=== PATIENT | male | born 1960 | race African-American/Black ===

== ENCOUNTER 2017-10-01 09:04 | Emergency (ER) | payer MEDICAID ==
--- NOTE | 2017-10-01 09:16 | ER Document Report ---
ED General - General Stated Complaint: BLOOD PRESSURE PROBLEM Time Seen by Provider: 10/01/17 09:13 Mode of Arrival: Ambulatory Information source: Patient Notes: 57-year-old male history of hypertension presents with complaints of high blood pressure. Patient notes he is supposed on lisinopril but does not have a PCP has been off his medications. Patient notes 3 days ago he was struck in the head at work, has had blurry vision on that left side where he was struck above his eyebrow. - HPI Onset: Other - 3 day duration Onset/Duration: Sudden Quality of pain: Achy Severity: Mild Pain Level: 1 Associated symptoms: Headache, Other Exacerbated by: Other - Injury Relieved by: Other - Patient given metoprolol by EMS notes symptoms have improved significantly, he was hypertensive upon arrival Similar symptoms previously: No Recently seen / treated by doctor: No - Related Data Allergies/Adverse Reactions: fluoxetine [From Prozac] Allergy (Verified 10/01/17 09:56) naproxen Allergy (Verified 10/01/17 09:56) Past Medical History - Social History Smoking Status: Never Smoker Cigarette use (# per day): No Chew tobacco use (# tins/day): No Smoking Education Provided: No Family History: Reviewed & Not Pertinent Review of Systems - Review of Systems Notes: REVIEW OF SYSTEMS: CONSTITUTIONAL : Denies fever, chills, or sweats. Denies recent illness. EENT: Left eye blurry vision CARDIOVASCULAR: Denies chest pain. Denies palpitations or racing or irregular heart beat. Denies ankle edema. RESPIRATORY: Denies cough, cold, or chest congestion. Denies shortness of breath, difficulty breathing, or wheezing. GASTROINTESTINAL: Denies abdominal pain or distention. Denies nausea, vomiting , or diarrhea. Denies blood in vomitus, stools, or per rectum. Denies black, tarry stools. Denies constipation. GENITOURINARY: Denies difficulty urinating, painful urination, burning, frequency, blood in urine, or discharge. MUSCULOSKELETAL: Denies back or neck pain or stiffness. Denies joint pain or swelling. SKIN: Denies rash, lesions or sores. HEMATOLOGIC : Denies easy bruising or bleeding. LYMPHATIC: Denies swollen, enlarged glands. NEUROLOGICAL: Admits to headache mild with left for head injury PSYCHIATRIC: Denies anxiety or stress. Denies depression, suicidal ideation, or homicidal ideation. ALL OTHER SYSTEMS REVIEWED AND NEGATIVE. Dictation was performed using [employer] voice recognition software PHYSICAL EXAMINATION: GENERAL: Well-appearing, well-nourished and in no acute distress. Hypertensive HEAD: Atraumatic, normocephalic. EYES: Pupils equal round and reactive to light, extraocular movements intact, sclera anicteric, conjunctiva are normal. ENT: Nares patent, oropharynx clear without exudates. Moist mucous membranes. NECK: Normal range of motion, supple without lymphadenopathy LUNGS: Breath sounds clear to auscultation bilaterally and equal. No wheezes rales or rhonchi. HEART: Regular rate and rhythm without murmurs ABDOMEN: Soft, nontender, nondistended abdomen. No guarding, no rebound. No masses appreciated. Musculoskeletal: Normal range of motion, no pitting or edema. No cyanosis. NEUROLOGICAL: Cranial nerves grossly intact. Normal speech, normal gait. Normal sensory, motor exams PSYCH: Normal mood, normal affect. SKIN: Warm, Dry, normal turgor, no rashes or lesions noted. Physical Exam - Vital signs Vitals: Resp Pulse Ox 21 H 95 10/01/17 09:36 10/01/17 09:36 Course - Re-evaluation Re-evalutation: 10/01/17 10:49 Patient's blood pressure is now 137/73, he notes this is the best his blood pressures ever been, the metoprolol was given to him appears to have worked quite well, I believe he has traumatic iritis from the injury causing the blurry vision, CT of the head was negative, he will be given a specific primary care doctor to follow-up with in's needs very. After performing a Medical Screening Examination, I estimate there is LOW risk for ACUTE GLAUCOMA, TEMPORAL ARTERITIS, MENINGITIS, INCRANIAL HEMORRHAGE, or ISCHEMIC STROKE thus I consider the discharge disposition reasonable. I have reevaluated this patient multiple times and no significant life threatening changes are noted. The patient and I have discussed the diagnosis and risks, and we agree with discharging home with close follow-up with the understanding that symptoms and presentations can change. We also discussed returning to the Emergency Department immediately if new or worsening symptoms occur. We have discussed the symptoms which are most concerning (e.g., changing or worsening symptoms, new numbness or weakness, vomiting, fever) that necessitate immediate return. - Vital Signs Vital signs: Temp Pulse Resp BP Pulse Ox 21 H 95 10/01/17 09:36 10/01/17 09:36 - Laboratory Result Diagrams: 10/01/17 09:10 10/01/17 09:10 Laboratory results interpreted by me: 10/01/17 10/01/17 09:10 09:10 RDW 14.8 H AST 71 H - Diagnostic Test Radiology reviewed: Image reviewed - ct head without ocntrast was negative for acute cva, Reports reviewed - EKG Interpretation by Me EKG shows normal: Sinus rhythm, [place], Intervals, QRS Complexes Discharge - Discharge Clinical Impression: Traumatic iritis Hypertension Qualifiers: Hypertension type: essential hypertension Qualified Code(s): I10 - Essential ( primary) hypertension Condition: Stable Disposition: HOME, SELF-CARE Instructions: High Blood Pressure, Requiring Treatment ([facility]) Additional Instructions: Please follow-up with the care plan provided to your return immediately if there are any other concerns Prescriptions: Labetalol HCl 100 mg PO BID #60 tablet
[2017-10-01 09:35] LABS: ABSOLUTE BASOPHILS # (AUTO) 0.1 10^3/uL (0.0-0.2); ABSOLUTE EOSINOPHILS # (AUTO) 0.1 10^3/uL (0.0-0.6); ABSOLUTE LYMPHOCYTES (AUTO) 2.3 10^3/uL (0.5-4.7); ABSOLUTE MONOCYTES (AUTO) 0.7 10^3/uL (0.1-1.4); ABSOLUTE NEUT (AUTO) 7.3 10^3/uL (1.7-8.2); BASOPHILS % (AUTO) 0.9 % (0-2); EOSINOPHILS % (AUTO) 0.6 % (0-6); HEMATOCRIT 48.2 % (37.9-51.0); HEMOGLOBIN 16.6 g/dL (13.5-17.0); LYMPHOCYTES % (AUTO) 21.7 % (13-45); MEAN CORPUSCULAR HEMOGLOBIN 31.4 pg (27.0-33.4); MEAN CORPUSCULAR HGB CONC 34.4 g/dL (32.0-36.0); MEAN CORPUSCULAR VOLUME 91 fl (80-97); MONOCYTES % (AUTO) 6.7 % (3-13); PLATELET COUNT 243 10^3/uL (150-450); RED BLOOD COUNT 5.29 10^6/uL (4.35-5.55); RED CELL DISTRIBUTION WIDTH 14.8 % (11.5-14.0); SEGMENTED NEUTROPHILS % (AUTO) 70.1 % (42-78); TOTAL CELLS COUNTED % (AUTO) 100 %; WHITE BLOOD COUNT 10.4 10^3/uL (4.0-10.5)
[2017-10-01 09:55] LABS: ALANINE AMINOTRANSFERASE 61 U/L (21-72); ALBUMIN 4.2 g/dL (3.5-5.0); ALKALINE PHOSPHATASE 75 U/L (38-126); ANION GAP 10 (5-19); ASPARTATE AMINO TRANSFERASE 71 U/L (17-59); BILIRUBIN,DIRECT 0.3 mg/dL (0.0-0.4); BILIRUBIN,TOTAL 0.3 mg/dL (0.2-1.3); BLOOD UREA NITROGEN 17 mg/dL (7-20); CALCIUM 9.6 mg/dL (8.4-10.2); CARBON DIOXIDE 27 mmol/L (22-30); CHLORIDE 107 mmol/L (98-107); GLUCOSE 104 mg/dL (75-110); POTASSIUM 4.5 mmol/L (3.6-5.0); TOTAL PROTEIN 7.7 g/dL (6.3-8.2)
--- NOTE | 2017-10-01 10:36 | RADIOLOGY REPORT (SQ) ---
EXAM DESCRIPTION: CT HEAD WITHOUT COMPLETED DATE/TIME: 10/01/2017 10:08 am REASON FOR STUDY: head trauma 3 days ago, left eye lburry vision COMPARISON: None. TECHNIQUE: Axial images acquired through the brain without intravenous contrast. Images reviewed wi th bone, brain and subdural windows. Additional sagittal and coronal reconstructions were generated. Images stored on PACS. All CT scanners at this facility use dose modulation, iterative reconstruction, and/or weight based d osing when appropriate to reduce radiation dose to as low as reasonably achievable (ALARA). [facility]: Dose Right [facility]: CareDose [facility]: Dose Right [facility]: Teradose 4D [facility]: Latio RADIATION DOSE: CT Rad equipment meets quality standard of care and radiation dose reduction techniq ues were employed. CTDIvol: 53.2 mGy. DLP: 1070 mGy-cm. mGy. LIMITATIONS: None. FINDINGS: VENTRICLES: Normal size and contour. CEREBRUM: No masses. No hemorrhage. No midline shift. No evidence for acute infarction. Normal gra y/white matter differentiation. No areas of low density in the white matter. CEREBELLUM: No masses. No hemorrhage. No alteration of density. No evidence for acute infarction. EXTRAAXIAL SPACES: No fluid collections. No masses. ORBITS AND GLOBE: No intra- or extraconal masses. Normal contour of globe without masses. CALVARIUM: No fracture. PARANASAL SINUSES: No fluid or mucosal thickening. SOFT TISSUES: No mass or hematoma. OTHER: No other significant finding. IMPRESSION: NORMAL BRAIN CT WITHOUT CONTRAST. EVIDENCE OF ACUTE STROKE: NO. COMMENT: Quality ID # [id number]: Final reports with documentation of one or more dose reduction techniques (e.g., Automated exposure control, adjustment of the mA and/or kV according to patient size, use of iterative reconstruction technique) TECHNICAL DOCUMENTATION: JOB ID: [id number] [employer]- All Rights Reserved Reading location - IP/workstation name: [email or web address]
[2017-10-01 11:19] VITALS: BP 134/73
--- NOTE | 2017-10-01 13:21 | EKG REPORT ---
SEVERITY:- NORMAL ECG - SINUS RHYTHM : Confirmed by: King Noble MD 01-Oct-2017 13:20:56
== END 2017-10-01 11:23 | disposition home or self-care (01) ==
LOC: ER 09:04
DX: I10 Essential (primary) hypertension (principal); H20.9 Unspecified iridocyclitis; H53.8 Other visual disturbances; S09.90XA Unspecified injury of head, initial encounter; W22.8XXA Striking against or struck by other objects, initial encounter; Y99.0 Civilian activity done for income or pay
CPT/HCPCS: 36415; 70450; 80053; 85025; 93005; 93010; 99284

== ENCOUNTER 2018-07-26 18:45 | Emergency (ER) | payer MEDICAID ==
--- NOTE | 2018-07-26 20:20 | ER Document Report ---
ED Medical Screen (RME) - General Chief Complaint: Headache Stated Complaint: HEADACHE Time Seen by Provider: 07/26/18 20:17 Notes: Patient is a 57-year-old male presents to the emergency department for intermittent headache and generalized memory loss for the last couple of months. Patient states for the last 24 hours he has noticed weakness in bilateral lower extremities and in his left upper extremity. Patient states he is supposed to be a medication for hypertension but does not take it Patient states his main complaint at this time is "the worst headache of my life." Past medical history: Hypertension, TIA Medications: Currently noncompliant with blood pressure medications Allergies: Prozac GENERAL: Alert, interacts well. No acute distress. HEAD: Normocephalic, atraumatic. EYES: Pupils equal, round, and reactive to light. Extraocular movements intact. NEUROLOGICAL: Alert and oriented x3. Normal speech. EXTREMITIES: Moves all 4 extremities spontaneously. No edema, normal radial and dorsalis pedis pulses bilaterally. No cyanosis. 5 out of 5 strength right upper extremity. 3 out of 5 strength left upper extremity and bilateral lower extremities. CVA scale 0 I have greeted and performed a rapid initial assessment of this patient. A comprehensive ED assessment and evaluation of the patient, analysis of test results and completion of the medical decision making process will be conducted by additional ED providers. TRAVEL OUTSIDE OF THE [place] IN LAST 30 DAYS: No - Related Data Allergies/Adverse Reactions: fluoxetine [From Prozac] Allergy (Verified 10/01/17 09:56) naproxen Allergy (Verified 10/01/17 09:56) Past Medical History - Past Medical History Cardiac Medical History: Reports: Hx Hypertension Renal/ Medical History: Denies: Hx Peritoneal Dialysis Past Surgical History: Reports: Hx Orthopedic Surgery Physical Exam - Vital signs Vitals: Temp Pulse Resp BP Pulse Ox 99.2 F 90 18 141/102 H 98 07/26/18 18:58 07/26/18 18:58 07/26/18 18:58 07/26/18 18:58 07/26/18 18:58 Course - Vital Signs Vital signs: Temp Pulse Resp BP Pulse Ox 99.2 F 90 18 141/102 H 98 07/26/18 18:58 07/26/18 18:58 07/26/18 18:58 07/26/18 18:58 07/26/18 18:58
--- NOTE | 2018-07-26 21:18 | RADIOLOGY REPORT (SQ) ---
EXAM DESCRIPTION: CT HEAD WITHOUT IV CONTRAST COMPLETED DATE/TME: 07/26/2018 20:17 CLINICAL HISTORY: 57 years, Male, headahce, weakness COMPARISON: None. EXAM DESCRIPTION: CLINICAL HISTORY: headahce, weakness COMPARISON: None Available TECHNIQUE: Contiguous axial CT images of the head were obtained. Coronal and sagittal reconstructions were created from the axial data. This exam was performed according to our departmental dose-optimization program, which includes automated exposure control, adjustment of the mA and/or kV according to patient size and/or use of iterative reconstruction technique. FINDINGS: Poorly defined foci of decreased attenuation do not exert significant mass effect on surrounding structures and are likely sequela of prior insult, most likely on the basis of small vessel disease. There is no evidence of acute mass, mass effect, midline shift or hemorrhage. The ventricles and extra-axial CSF spaces are unremarkable. The brain parenchyma appears otherwise normal for the patient's age. No acute abnormalities of the bones is seen. IMPRESSION: No acute intracranial abnormality.
[2018-07-26 22:33] LABS: APPEARANCE,URINE CLEAR; BILIRUBIN,URINE NEGATIVE (NEGATIVE); COLOR,URINE YELLOW; GLUCOSE, URINE NEGATIVE (NEGATIVE); KETONES,URINE NEGATIVE (NEGATIVE); LEUKOCYTE ESTERASE,URINE NEGATIVE (NEGATIVE); NITRITE,URINE NEGATIVE (NEGATIVE); PROTEIN,URINE NEGATIVE (NEGATIVE); URINE SPECIFIC GRAVITY 1.017; UROBILINOGEN,URINE NEGATIVE mg/dL (<2.0)
--- NOTE | 2018-07-26 22:49 | ER Document Report ---
ED Headache - General Chief Complaint: Headache Stated Complaint: HEADACHE Time Seen by Provider: 07/26/18 22:48 Mode of Arrival: Ambulatory Information source: Patient Notes: HISTORY OF PRESENT ILLNESS: Patient is a 57-year-old male with a past medical history of hypertension who presents with generalized malaise and weakness that began several days ago, also reports trouble with his "memory for the past 3 months." Location: Global Onset: Gradual Provocation: None Quality: Generalized weakness Radiation: None Severity: Mild to moderate Timing: Constant Associated symptoms: No fevers or chills, cough or congestion, chest pain or shortness of breath, swelling of the extremities, difficulty walking, vision changes, confusion/disorientation REVIEW OF SYSTEMS: CONSTITUTIONAL : Denies fever or chills, no sweats. Denies recent illness. EENT: Denies eye, ear, throat, or mouth pain or symptoms. Denies nasal or sinus congestion. CARDIOVASCULAR: Denies chest pain. RESPIRATORY: Denies cough, cold, or chest congestion. Denies shortness of breath, difficulty breathing, or wheezing. GASTROINTESTINAL: Denies abdominal pain. Denies nausea, vomiting, or diarrhea. Denies constipation. GENITOURINARY: Denies difficulty urinating, painful urination, burning, frequency, or blood in urine. MUSCULOSKELETAL: Denies neck or back pain or joint pain or swelling. SKIN: Denies rash or skin lesions. HEMATOLOGIC : Denies easy bruising or bleeding. LYMPHATIC: Denies swollen, enlarged glands. NEUROLOGICAL: Denies altered mental status or loss of consciousness. Denies headache. Denies weakness or paralysis or loss of use of either side. Denies problems with gait or speech. Denies sensory or motor loss. PSYCHIATRIC: Denies anxiety or stress or depression. All other systems reviewed and negative. PHYSICAL EXAMINATION: GENERAL: Well-appearing, well-nourished and in no acute distress. HEAD: Atraumatic, normocephalic. No scalp deformity, depression, or crepitance. EYES: Pupils are 3 mm and equal/round/reactive to light, extraocular movements intact, sclera anicteric, conjunctiva are normal. ENT: Nares patent bilaterally, oropharynx clear without exudates or palatal petechia. Moist mucous membranes. No tonsil hypertrophy. NECK: Normal range of motion, supple without lymphadenopathy. LUNGS: Breath sounds present, equal, and clear to auscultation bilaterally. No wheezes, rales, or rhonchi. HEART: Regular rate and rhythm without murmurs, rubs, or gallops. 2+ peripheral pulses. Normal capillary refill. ABDOMEN: Soft, nontender, nondistended. Normoactive bowel sounds. No guarding, no rebound. No masses appreciated. BACK: Normal contour, no midline tenderness. Rectal exam deferred. GENITAL: Deferred. EXTREMITIES: Normal range of motion, no pitting or edema. No cyanosis. NEUROLOGICAL: No focal neurological deficits. Moves all extremities spontaneously and on command. PSYCH: Normal mood, normal affect. No suicidal thoughts/ideations. No homocidal thoughts/ideations. No hallucinations. SKIN: Warm, dry, normal turgor, no rashes or lesions noted. ASSESSMENT AND PLAN: This patient is a 57-year-old male who presents with generalized malaise and w eakness with a normal physical exam. Differentials include UTI, drug abuse, dehydration, acute WA. 1. Will obtain labs, urine, urine drug screen, troponin, EKG, chest x-ray, and reassess. 2. Will likely discharge if workup is negative. TRAVEL OUTSIDE OF THE [place] IN LAST 30 DAYS: No - Related Data Allergies/Adverse Reactions: fluoxetine [From [employer]] Allergy (Verified 10/01/17 09:56) naproxen Allergy (Verified 10/01/17 09:56) Past Medical History - General Information source: Patient - Social History Smoking Status: Current Every Day Smoker Chew tobacco use (# tins/day): No Frequency of alcohol use: Social Drug Abuse: None Lives with: Alone Family History: Reviewed & Not Pertinent Patient has suicidal ideation: No Patient has homicidal ideation: No - Past Medical History Cardiac Medical History: Reports: Hx Hypertension Pulmonary Medical History: Reports: None EENT Medical History: Reports: None Neurological Medical History: Reports: None Endocrine Medical History: Reports: None Renal/ Medical History: Reports: None. Denies: Hx Peritoneal Dialysis Malignancy Medical History: Reports None GI Medical History: Reports: None Musculoskeletal Medical History: Reports None Skin Medical History: Reports None Psychiatric Medical History: Reports: None Traumatic Medical History: Reports: None Infectious Medical History: Reports: None Past Surgical History: Reports: Hx Orthopedic Surgery - Immunizations Immunizations up to date: Yes Hx Diphtheria, Pertussis, Tetanus Vaccination: Yes History of Influenza Vaccine for 02/2017 - 07/2017 Season: Unknown Physical Exam - Vital signs Vitals: Temp Pulse Resp BP Pulse Ox 99.2 F 90 18 141/102 H 98 07/26/18 18:58 07/26/18 18:58 07/26/18 18:58 07/26/18 18:58 07/26/18 18:58 Course - Re-evaluation Re-evalutation: 07/27/18 02:02 Labs, cardiac enzymes, urinalysis with drug screen, and head CT are all negative. Patient will be discharged home with return precautions and follow- up. Patient voices both understanding and agreeing with plan. - Vital Signs Vital signs: Temp Pulse Resp BP Pulse Ox 98.5 F 88 22 H 132/99 H 98 07/27/18 01:20 07/27/18 01:20 07/27/18 01:20 07/27/18 01:20 07/27/18 01:20 - Laboratory Result Diagrams: 07/26/18 23:02 07/26/18 23:02 Laboratory results interpreted by me: 07/26/18 07/26/18 23:02 23:02 RDW 14.6 H AST 74 H ALT 78 H - Diagnostic Test Radiology reviewed: Image reviewed, Reports reviewed - EKG Interpretation by Me EKG shows normal: Sinus rhythm Rate: Normal Rhythm: NSR [place]/QRS: No: Right axis deviation, Left axis deviation, RBBB, LBBB, IVCD, LAHB/LAFB, LPHB/LPFB, Bifasicular block Voltage: No: Increased voltage, Consistant with LVH, Decreased voltage, Throughout, Limb leads P Waves: No: JOSÉ MIGUEL, LAE, Absent, AV Dissociation, Other Heart block present: No: 1st Degree, Mobitz 1, Mobitz 2, CHB (3rd degree block) When compared to previous EKG there are: Previous EKG unavailable Discharge - Discharge Clinical Impression: Headache Qualifiers: Headache type: tension-type Headache chronicity pattern: acute headache Intractability: not intractable Qualified Code(s): G44.209 - Tension-type headache, unspecified, not intractable Condition: Good Disposition: HOME, SELF-CARE Instructions: Headache ([facility]) Additional Instructions: You have been evaluated in the Emergency Department for general weakness and having a headache. While here, you had normal blood work as well as a normal CAT scan of your head and it is now safe to be discharged home. Please follow- up with your primary physician as instructed in 1 week to be rechecked. Return to the Emergency Department if you experience vision changes, disorientation, confusion, difficulty walking, chest pain, or any other concerning symptoms. Prescriptions: Loratadine/Pseudoephedrine Sul [Claritin-D 24 Hour Tablet] 1 tab PO DAILY #30 tab.sr.24h Print Language: Iraqi
[2018-07-26 23:11] LABS: ABSOLUTE BASOPHILS # (AUTO) 0.1 10^3/uL (0.0-0.2); ABSOLUTE LYMPHOCYTES (AUTO) 2.2 10^3/uL (0.5-4.7); ABSOLUTE MONOCYTES (AUTO) 0.6 10^3/uL (0.1-1.4); ABSOLUTE NEUT (AUTO) 6.9 10^3/uL (1.7-8.2); BASOPHILS % (AUTO) 0.7 % (0-2); EOSINOPHILS % (AUTO) 0.4 % (0-6); HEMATOCRIT 46.8 % (37.9-51.0); HEMOGLOBIN 16.1 g/dL (13.5-17.0); LYMPHOCYTES % (AUTO) 22.6 % (13-45); MEAN CORPUSCULAR HEMOGLOBIN 31.3 pg (27.0-33.4); MEAN CORPUSCULAR HGB CONC 34.4 g/dL (32.0-36.0); MEAN CORPUSCULAR VOLUME 91 fl (80-97); MONOCYTES % (AUTO) 6.1 % (3-13); PLATELET COUNT 216 10^3/uL (150-450); RED BLOOD COUNT 5.15 10^6/uL (4.35-5.55); RED CELL DISTRIBUTION WIDTH 14.6 % (11.5-14.0); SEGMENTED NEUTROPHILS % (AUTO) 70.2 % (42-78); TOTAL CELLS COUNTED % (AUTO) 100 %; WHITE BLOOD COUNT 9.9 10^3/uL (4.0-10.5)
[2018-07-26 23:32] LABS: ALANINE AMINOTRANSFERASE 78 U/L (21-72); ALBUMIN 4.2 g/dL (3.5-5.0); ALKALINE PHOSPHATASE 70 U/L (38-126); ANION GAP 8 (5-19); ASPARTATE AMINO TRANSFERASE 74 U/L (17-59); BILIRUBIN,DIRECT 0.2 mg/dL (0.0-0.4); BILIRUBIN,TOTAL 0.7 mg/dL (0.2-1.3); BLOOD UREA NITROGEN 13 mg/dL (7-20); CALCIUM 9.7 mg/dL (8.4-10.2); CARBON DIOXIDE 28 mmol/L (22-30); CHLORIDE 104 mmol/L (98-107); GLUCOSE 93 mg/dL (75-110); POTASSIUM 4.4 mmol/L (3.6-5.0); SODIUM 139.5 mmol/L (137-145); TOTAL PROTEIN 7.5 g/dL (6.3-8.2)
[2018-07-27 01:11] LABS: URINE AMPHETAMINES SCREEN NEGATIVE; URINE BARBITURATES SCREEN NEGATIVE; URINE BENZODIAZEPINES SCREEN NEGATIVE; URINE COCAINE SCREEN NEGATIVE; URINE MARIJUANA (THC) SCREEN NEGATIVE; URINE METHADONE SCREEN NEGATIVE; URINE PHENCYCLIDINE SCREEN NEGATIVE
[2018-07-27 01:21] VITALS: BP 132/99
--- NOTE | 2018-07-27 10:25 | EKG REPORT ---
SEVERITY:- NORMAL ECG - SINUS RHYTHM : Confirmed by: Saumya Tony MD 27-Jul-2018 10:24:41
== END 2018-07-27 02:34 | disposition home or self-care (01) ==
LOC: ER 18:45
DX: G44.209 Tension-type headache, unspecified, not intractable (principal); I10 Essential (primary) hypertension; F17.200 Nicotine dependence, unspecified, uncomplicated
CPT/HCPCS: 36415; 70450; 80053; 80307; 81001; 84484; 85025; 93005; 93010; 99284

== ENCOUNTER 2019-10-25 20:15 | Inpatient (IN) | payer MEDICAID ==
[2019-10-25] MEDS ORDERED: CEFTRIAXONE INJ 1000 MG VIAL IV ONE (20:45)
[2019-10-25] MEDS ORDERED: HYDROCODONE/ACETAMINOPHEN 5-325 MG TABLET PO ONE (20:45)
[2019-10-25] MEDS ORDERED: RINGERS SOLUTION,LACTATED 1,000 ML IV ONE (20:45)
--- NOTE | 2019-10-25 20:48 | ER Document Report ---
ED Medical Screen (RME) - General Chief Complaint: Wound Infection Stated Complaint: HAND PAIN Time Seen by Provider: 10/25/19 20:39 Mode of Arrival: Medic Information source: Patient Notes: HPI; 39-year-old male presents emergency room complaining of increased pain, swelling, and drainage around surgical pins that he noticed yesterday. States he was able to feel the pins and screws from the surgery he had 1 month ago after a fall off a roof states he saw Dr. Lino last week who told him he would see him next week to have the pins removed. Comes in tonight for increased swelling, redness, and drainage. PE: Alert and oriented x3. Moderate distress noted. Left hand with moderate amount of swelling, erythema, drainage noted medial aspect of the right wrist. I have greeted and performed a rapid initial assessment of this patient. A comprehensive ED assessment and evaluation of the patient, analysis of test results and completion of the medical decision making process will be conducted by additional ED providers. I have specifically instructed the patient or family members with the patient to immediately return to any nursing staff should anything change in the patient's condition or with their chief complaint. TRAVEL OUTSIDE OF THE [place] IN LAST 30 DAYS: No - Related Data Allergies/Adverse Reactions: fluoxetine [From Prozac] Allergy (Verified 08/26/19 14:08) naproxen Allergy (Verified 08/26/19 14:08) Home Medications: gabapentin, lisinopril, oxycodone Past Medical History - Past Medical History Cardiac Medical History: Reports: Hx Hypertension Renal/ Medical History: Denies: Hx Peritoneal Dialysis Psychiatric Medical History: Reports: Hx Schizophrenia Past Surgical History: Reports: Hx Orthopedic Surgery - Immunizations Immunizations up to date: Yes Hx Diphtheria, Pertussis, Tetanus Vaccination: Yes Physical Exam - Vital signs Vitals: Temp Pulse Resp BP Pulse Ox 100.3 F 91 20 158/95 H 95 10/25/19 20:22 10/25/19 20:22 10/25/19 20:22 10/25/19 20:22 10/25/19 20:22 Course - Vital Signs Vital signs: Temp Pulse Resp BP Pulse Ox 100.3 F 91 20 158/95 H 95 10/25/19 20:31 10/25/19 20:22 10/25/19 20:22 10/25/19 20:22 10/25/19 20:22
--- NOTE | 2019-10-25 21:57 | RADIOLOGY REPORT (SQ) ---
CLINICAL INDICATION: pain/swelling. . TECHNIQUE: 3 view(s) were obtained of the left wrist. COMPARISON: August 26, 2019. FINDINGS: Old posttraumatic and postsurgical changes identified to the third and fourth metacarpal. Pins are identified stabilizing the wrist post surgical reduction.. Alignment appears anatomic. An acute fracture is not seen. Soft tissue swelling. IMPRESSION: Anatomic alignment. No acute fracture. Postsurgical change is seen.
[2019-10-25] MEDS ORDERED: CEFTRIAXONE 1 GM/D5W RTU 1 GM/50 ML RTUPB IV ONE (22:09)
--- NOTE | 2019-10-25 22:22 | ER Document Report ---
ED General - General Chief Complaint: Wound Infection Stated Complaint: HAND PAIN Time Seen by Provider: 10/25/19 20:39 Primary Care Provider: MARCO ANTONIO RODRIGUEZ FNP-C [Primary Care Provider] - Follow up as needed Mode of Arrival: Medic Information source: Patient Notes: triage note 10/25/19 20:36 - ED Nursing Note by AMINKELSYMarci Lott Num: [id number] : 1960 Patient Age: 59 pt had surgery w/screws in left wrist. 1 wk ago pt was able to remove partial cast. pt now w/drainage from surg site, running fever. pt w/swelling going up arm. pt was given tylenol by ems. surg was done here at [place]. PA note HPI; 39-year-old male presents emergency room complaining of increased pain, swelling, and drainage around surgical pins that he noticed yesterday. States he was able to feel the pins and screws from the surgery he had 1 month ago after a fall off a roof states he saw Dr. Lino last week who told him he would see him next week to have the pins removed. Comes in tonight for increased swelling, redness, and drainage. PE: Alert and oriented x3. Moderate distress noted. Left hand with moderate amount of swelling, erythema, drainage noted medial aspect of the right wrist. my notes 59-year-old male with chief complaint of left wrist pain after having drainage from surgical site with fever and swelling around the arm. my notes 59-year-old black male arrives with chief complaint of falling off the roof around [address] Lino orthopedics do ORIF on the man's wrist. He was seen in the office by same 1 week prior and the patient was complaining of feeling like a pin was working his way out. He is scheduled to get his pins out soon but he began to have over the past 5 days increasing pain and swelling to where he has purulent discharge from his left snuffbox area and redness and streaking to his mid forearm. The diameter of his hand on the left is twice that of his right hand as well as his left sided wrist being twice the diameter of the right wrist he reports she is been running fevers and indeed he is febrile upon arrival.100+ temperature. Patient was given vancomycin and Ro cephin upon arrival. Blood was cultured and wound was cultured by staff.. TRAVEL OUTSIDE OF THE [place] IN LAST 30 DAYS: No - HPI Onset: Last week Onset/Duration: Sudden Quality of pain: Achy, Fullness, Pressure Severity: Severe Pain Level: 4 Associated symptoms: Fever Exacerbated by: Movement Relieved by: Denies Similar symptoms previously: No Recently seen / treated by doctor: No - Related Data Allergies/Adverse Reactions: fluoxetine [From Prozac] Allergy (Verified 08/26/19 14:08) naproxen Allergy (Verified 08/26/19 14:08) Home Medications: gabapentin, lisinopril, oxycodone Past Medical History - General Information source: Patient - Social History Smoking Status: Current Every Day Smoker Cigarette use (# per day): Yes Chew tobacco use (# tins/day): No Smoking Education Provided: Yes Frequency of alcohol use: None Drug Abuse: None Lives with: Family Family History: Reviewed & Not Pertinent Patient has suicidal ideation: No Patient has homicidal ideation: No - Past Medical History Cardiac Medical History: Reports: Hx Hypertension Renal/ Medical History: Denies: Hx Peritoneal Dialysis Psychiatric Medical History: Reports: Hx Schizophrenia Past Surgical History: Reports: Hx Orthopedic Surgery - Immunizations Immunizations up to date: Yes Hx Diphtheria, Pertussis, Tetanus Vaccination: Yes Review of Systems - Review of Systems Constitutional: See HPI, Fever, Weakness, Other - Recent surgery EENT: No symptoms reported Cardiovascular: No symptoms reported Respiratory: No symptoms reported Gastrointestinal: No symptoms reported Genitourinary: No symptoms reported Male Genitourinary: No symptoms reported Musculoskeletal: See HPI, Joint pain, Joint swelling, Muscle pain Skin: No symptoms reported Hematologic/Lymphatic: No symptoms reported Neurological/Psychological: No symptoms reported Physical Exam - Vital signs Vitals: Temp Pulse Resp BP Pulse Ox 100.3 F 91 20 158/95 H 95 10/25/19 20:22 10/25/19 20:22 10/25/19 20:22 10/25/19 20:22 10/25/19 20:22 Interpretation: Febrile - General General appearance: Alert - HEENT Head: Normocephalic, Atraumatic Eyes: Normal Pupils: PERRL Pharynx: Normal Neck: Normal - Respiratory Respiratory status: No respiratory distress Chest status: Nontender Breath sounds: Normal Chest palpation: Normal - Cardiovascular Rhythm: Regular Heart sounds: Normal auscultation Murmur: No - Abdominal Inspection: Normal Distension: No distension Bowel sounds: Normal Tenderness: Nontender Organomegaly: No organomegaly - Rectal Hemorrhoids: Other - deferred - Genitourinary Tenderness: Other - deferred - Back Back: Normal, Nontender - Extremities General upper extremity: Tender, Other - purulent dc from left snuff box area General lower extremity: Normal inspection - Neurological Neuro grossly intact: Yes Cognition: Normal Orientation: AAOx4 Tasha Coma Scale Eye Opening: Spontaneous [place]asha Coma Scale Verbal: Oriented [place] Coma Scale Motor: Obeys Commands [place] Coma Scale Total: 15 Speech: Normal Motor strength normal: LUE, RUE, LLE, RLE Sensory: Normal - Psychological Associated symptoms: Normal affect - Skin Skin Temperature: Warm Skin Moisture: Dry Course - Vital Signs Vital signs: Temp Pulse Resp BP Pulse Ox 100.3 F 91 20 158/95 H 95 10/25/19 20:31 10/25/19 20:22 10/25/19 20:22 10/25/19 20:22 10/25/19 20:22 - Laboratory Result Diagrams: 10/25/19 22:13 10/25/19 22:13 Laboratory results interpreted by me: 10/25/19 10/25/19 22:13 22:13 WBC 18.4 H Absolute Neuts (auto) 13.7 H Absolute Monos (auto) 1.7 H Sodium 135.2 L Potassium 3.2 L Chloride 97 L Glucose 112 H - Diagnostic Test Radiology reviewed: Reports reviewed Critical Care Note - Critical Care Note Total time excluding time spent on procedures (mins): 90 Comments: This case was initially discussed with Dr. Gonzalez orthopedics but he advised this is case and to call him. Therefore this call was made and Desmond advised he will admit the patient . Discharge - Discharge Clinical Impression: Cellulitis and abscess of hand Condition: Fair Disposition: ADMITTED INPATIENT Unit Admitted: Medical Floor Referrals: MARCO ANTONIO RODRIGUEZ FNP-C [Primary Care Provider] - Follow up as needed
[2019-10-25] MEDS ORDERED: VANCOMYCIN HCL INJ 1000 MG VIAL IV ONE (22:26)
[2019-10-25 22:37] LABS: ABSOLUTE BASOPHILS # (AUTO) 0.2 10^3/uL (0.0-0.2); ABSOLUTE LYMPHOCYTES (AUTO) 2.8 10^3/uL (0.5-4.7); ABSOLUTE MONOCYTES (AUTO) 1.7 10^3/uL (0.1-1.4); ABSOLUTE NEUT (AUTO) 13.7 10^3/uL (1.7-8.2); EOSINOPHILS % (AUTO) 0.2 % (0-6); HEMATOCRIT 46.9 % (37.9-51.0); HEMOGLOBIN 16.4 g/dL (13.5-17.0); LYMPHOCYTES % (AUTO) 15.2 % (13-45); MEAN CORPUSCULAR HEMOGLOBIN 31.7 pg (27.0-33.4); MEAN CORPUSCULAR HGB CONC 34.9 g/dL (32.0-36.0); MEAN CORPUSCULAR VOLUME 91 fl (80-97); MONOCYTES % (AUTO) 9.5 % (3-13); PLATELET COUNT 225 10^3/uL (150-450); RED BLOOD COUNT 5.18 10^6/uL (4.35-5.55); RED CELL DISTRIBUTION WIDTH 13.8 % (11.5-14.0); SEGMENTED NEUTROPHILS % (AUTO) 74.1 % (42-78); TOTAL CELLS COUNTED % (AUTO) 100 %; WHITE BLOOD COUNT 18.4 10^3/uL (4.0-10.5)
[2019-10-25 22:52] LABS: ALBUMIN 4.1 g/dL (3.5-5.0); ALKALINE PHOSPHATASE 68 U/L (38-126); ANION GAP 9 (5-19); ASPARTATE AMINO TRANSFERASE 47 U/L (17-59); BILIRUBIN,DIRECT 0.1 mg/dL (0.0-0.4); BLOOD UREA NITROGEN 10 mg/dL (7-20); CALCIUM 9.5 mg/dL (8.4-10.2); CARBON DIOXIDE 29 mmol/L (22-30); CHLORIDE 97 mmol/L (98-107); GLUCOSE 112 mg/dL (75-110); POTASSIUM 3.2 mmol/L (3.6-5.0); TOTAL PROTEIN 7.4 g/dL (6.3-8.2)
[2019-10-25] MEDS ORDERED: ONDANSETRON HCL INJ/PF 4 MG/2 ML SDV IV PRN (23:29)
[2019-10-25] MEDS ORDERED: MORPHINE SULFATE 10 MG/ML INJ IV PRN (23:29)
[2019-10-25] MEDS ORDERED: VANCOMYCIN HCL INJ 1000 MG VIAL IV SCH (23:30)
[2019-10-25 23:55] LABS: ANION GAP 6 (5-19); BLOOD UREA NITROGEN 10 mg/dL (7-20); CALCIUM 8.9 mg/dL (8.4-10.2); CARBON DIOXIDE 28 mmol/L (22-30); CHLORIDE 99 mmol/L (98-107); GLUCOSE 117 mg/dL (75-110); POTASSIUM 3.1 mmol/L (3.6-5.0)
[2019-10-26] MEDS: OXYCODONE-ACETAMINOPHEN 5-325 MG TABLET PO PRN ×4 (01:57→21:44)
[2019-10-26 06:35] LABS: HEMATOCRIT 45.5 % (37.9-51.0); MEAN CORPUSCULAR HEMOGLOBIN 31.9 pg (27.0-33.4); MEAN CORPUSCULAR HGB CONC 35.3 g/dL (32.0-36.0); MEAN CORPUSCULAR VOLUME 90 fl (80-97); PLATELET COUNT 199 10^3/uL (150-450); RED BLOOD COUNT 5.03 10^6/uL (4.35-5.55); RED CELL DISTRIBUTION WIDTH 13.6 % (11.5-14.0); WHITE BLOOD COUNT 14.8 10^3/uL (4.0-10.5)
--- NOTE | 2019-10-26 07:07 | PDOC H&P ---
History of Present Illness Admission Date/PCP: 10/25/19 23:46 JUWAN HANCOCK-C Patient complains of: Left hand pain and swelling History of Present Illness: PACHECO KHAN is a 59 year old male who presented to emergency room with increasing redness swelling and pain along with drainage from 1 of the pin sites. Patient states since his most recent office visit he was having no issues but did remove the brace and begin more aggressive motion of his wrist which caused swelling and noticed the pins began to move. Patient then presented to the emergency room due to increasing redness and swelling that occurred over the past 24 hours. In the emergency room patient was found to have elevated white count and drainage. Cultures were obtained. Patient was started on antibiotics. Patient notes numbness in his fingertips are relatively unchanged but has considerable swelling and pain along the dorsum of the wrist. Past Medical History Cardiac Medical History: Reports: Hypertension Psychiatric Medical History: Reports: Depression Past Surgical History Past Surgical History: Reports: Orthopedic Surgery Social History Lives with: Family Smoking Status: Current Every Day Smoker Cigarettes Packs Per Day: 1 Electronic Cigarette use?: No Number of Years Smokin Frequency of Alcohol Use: Heavy Drugs: None Hx Prescription Drug Abuse: No Family History Family History: Reviewed & Not Pertinent Parental Family History Reviewed: No Children Family History Reviewed: No Sibling(s) Family History Reviewed.: No Medication/Allergy Home Medications: Lisinopril [Prinivil 10 mg Tablet] 10 mg PO DAILY 08/26/19 Oxycodone HCl/Acetaminophen [Percocet 5-325 mg Tablet] 1 tab PO Q6 PRN #25 tab 08/26/19 Allergies/Adverse Reactions: fluoxetine [From Prozac] Allergy (Verified 08/26/19 14:08) naproxen Allergy (Verified 08/26/19 14:08) Review of Systems Constitutional: PRESENT: fever(s). ABSENT: chills, headache(s), weight gain, weight loss Eyes: ABSENT: visual disturbances Ears: ABSENT: hearing changes Cardiovascular: ABSENT: chest pain, dyspnea on exertion, edema, orthropnea, palpitations Respiratory: ABSENT: cough, hemoptysis Gastrointestinal: ABSENT: abdominal pain, constipation, diarrhea, hematemesis, hematochezia, nausea, vomiting Genitourinary: ABSENT: dysuria, hematuria Musculoskeletal: PRESENT: as per HPI Integumentary: ABSENT: rash, wounds Neurological: ABSENT: abnormal gait, abnormal speech, confusion, dizziness, focal weakness, syncope Psychiatric: ABSENT: anxiety, depression, homidical ideation, suicidal ideation Endocrine: ABSENT: cold intolerance, heat intolerance, menstrual abnormalities, polydipsia, polyuria Hematologic/Lymphatic: ABSENT: easy bleeding, easy bruising, lymphadenopathy Physical Exam Vital Signs: Temp Pulse Resp BP Pulse Ox 98.7 F 95 16 124/75 100 10/26/19 02:25 10/26/19 02:25 10/26/19 02:25 10/26/19 02:25 10/26/19 02:25 Intake & Output 10/25/19 10/26/19 10/27/19 06:59 06:59 06:59 Intake Total 1000 Balance 1000 Weight 91.6 kg General appearance: PRESENT: no acute distress, well-developed, well-nourished Head exam: PRESENT: atraumatic, normocephalic Eye exam: PRESENT: conjunctiva pink, EOMI, PERRLA. ABSENT: scleral icterus Ear exam: PRESENT: normal external ear exam Mouth exam: PRESENT: moist, tongue midline Neck exam: PRESENT: full ROM. ABSENT: carotid bruit, JVD, lymphadenopathy, thyromegaly Cardiovascular exam: PRESENT: RRR. ABSENT: diastolic murmur, rubs, systolic murmur Pulses: PRESENT: normal dorsalis pedis pul, +2 pedal pulses bilateral Vascular exam: PRESENT: normal capillary refill GI/Abdominal exam: PRESENT: normal bowel sounds, soft. ABSENT: distended, gu arding, mass, organolmegaly, rebound, tenderness Rectal exam: PRESENT: deferred Musculoskeletal exam: PRESENT: other - Left wrist: Notable swelling along the dorsum of the wrist with tenderness to palpation. Small pin site with purulent drainage along the radial sided pin site. Tenderness to palpation. Intact flexion of the IP/MP joints however pain with motion. Hypoesthesia on the median nerve distribution which is unchanged. Neurological exam: PRESENT: alert, awake, oriented to person, oriented to place, oriented to time, oriented to situation, CN II-XII grossly intact. ABSENT: motor sensory deficit Psychiatric exam: PRESENT: appropriate affect, normal mood. ABSENT: homicidal ideation, suicidal ideation Skin exam: PRESENT: dry, intact, warm. ABSENT: cyanosis, rash Results Laboratory Results: 10/26/19 05:44 06/02/20 23:18 10/25/19 10/25/19 10/25/19 22:13 22:13 22:13 WBC 18.4 H RBC 5.18 Hgb 16.4 Hct 46.9 MCV 91 MCH 31.7 MCHC 34.9 RDW 13.8 Plt Count 225 Seg Neutrophils % 74.1 Sodium 135.2 L Potassium 3.2 L Chloride 97 L Carbon Dioxide 29 Anion Gap 9 BUN 10 Creatinine 0.85 Est GFR ( Amer) > 60 Glucose 112 H Lactic Acid 1.0 Calcium 9.5 Total Bilirubin 1.0 AST 47 Alkaline Phosphatase 68 Total Protein 7.4 Albumin 4.1 10/25/19 10/26/19 23:18 05:44 WBC 14.8 H RBC 5.03 Hgb 16.0 Hct 45.5 MCV 90 MCH 31.9 MCHC 35.3 RDW 13.6 Plt Count 199 Seg Neutrophils % Sodium 133.1 L Potassium 3.1 L Chloride 99 Carbon Dioxide 28 Anion Gap 6 BUN 10 Creatinine 0.79 Est GFR ( Amer) > 60 Glucose 117 H Lactic Acid Calcium 8.9 Total Bilirubin AST Alkaline Phosphatase Total Protein Albumin Impressions: Wrist X-Ray 10/25/19 20:44 IMPRESSION: Anatomic alignment. No acute fracture. Postsurgical change is seen. Assessment & Plan - Diagnosis (1) Cellulitis and abscess of hand Is this a current diagnosis for this admission?: Yes Plan: Patient is status post ORIF with carpal tunnel release perilunate dislocation. Patient had been progressing appropriately although always had pain issues. However over the past 24 hours she has noticed increasing drainage and swelling of his hand likely secondary to increased motion of his wrist. Lab values in the emergency room demonstrated elevated white count at this point I feel patient's pin sites are causing at the very least a superficial infection marie aj deep infection may also be contributing as well. At this point I have recommended proceeding with operative intervention within the next 24 hours which includes irrigation and debridement of the left hand with pin removal. Patient will continue on current IV antibiotic regimen. Will consult the hospitalist due to patient's hypokalemia as well. Risk and benefits of surgical procedure have been explained patient verbalized understanding consented for surgical procedure.
[2019-10-26] MEDS: CEFTRIAXONE 2 GM/D5W RTU 2 GM/50 ML RTUPB IV SCH (09:24)
[2019-10-26] MEDS ORDERED: VANCOMYCIN HCL INJ 1000 MG VIAL IV SCH (10:15)
--- NOTE | 2019-10-26 10:28 | PDOC CONSULTATION ---
Consultation Consult Date: 10/26/19 Attending physician:: JAMIE LOGAN Provider Consulted: VEENA WALLER Consult reason:: hypokalemia History of Present Illness Admission Date/PCP: 10/25/19 23:46 ANTHONY HANCOCK Patient complains of: Left hand pain and drainage History of Present Illness: PACHECO KHAN is a 59 year old male with history of hypertension, who presents to the hospital for reevaluation of purulence from left hand at s urgical site of his recent orthopedic surgery. Patient also noted increased swelling of his left hand. Admitted under orthopedic service with plan for OR this evening for evaluation and therapy. Patient noted to be hypokalemic. Patient denies any nausea, vomiting, diarrhea, decreased oral intake, loss of appetite/anorexia. He also denies being on any diuretics/water pills. He otherwise feels well and denies any shortness of breath fever or abdominal pain. Past Medical History Cardiac Medical History: Reports: Hypertension Denies: Atrial Fibrillation, Congestive Heart Failure, Coronary Artery Disease, Myocardial Infarction Pulmonary Medical History: Denies: Asthma, Chronic Obstructive Pulmonary Disease (COPD) Endocrine Medical History: Denies: Diabetes Mellitus Type 1, Diabetes Mellitus Type 2 Past Surgical History Past Surgical History: Reports: Orthopedic Surgery Social History Information Source: Patient Lives with: Family Smoking Status: Current Every Day Smoker Cigarettes Packs Per Day: 1 Electronic Cigarette use?: No Number of Years Smokin Frequency of Alcohol Use: Social - states drinks about 6 beers a week. Denies ever withdrawing from alcohol. Drugs: None Hx Prescription Drug Abuse: No Family History Family History: DM, Hypertension Parental Family History Reviewed: Yes Children Family History Reviewed: NA Sibling(s) Family History Reviewed.: Yes Medication/Allergy Home Medications: Lisinopril [Prinivil 10 mg Tablet] 10 mg PO DAILY 08/26/19 Allergies/Adverse Reactions: fluoxetine [From Prozac] Allergy (Verified 08/26/19 14:08) naproxen Allergy (Verified 08/26/19 14:08) Review of Systems Constitutional: ABSENT: anorexia, fatigue Eyes: ABSENT: visual disturbances Cardiovascular: ABSENT: chest pain, dyspnea on exertion, orthropnea Respiratory: ABSENT: cough, dyspnea Gastrointestinal: ABSENT: abdominal pain, diarrhea, nausea, vomiting Genitourinary: ABSENT: dysuria Integumentary: ABSENT: diaphoresis Neurological: ABSENT: dizziness Psychiatric: ABSENT: anxiety Endocrine: ABSENT: cold intolerance Hematologic/Lymphatic: ABSENT: easy bleeding Allergic/Immunologic: PRESENT: seasonal rhinorrhea Physical Exam Vital Signs: Temp Pulse Resp BP Pulse Ox 98.8 F 89 18 146/99 H 98 10/26/19 07:07 10/26/19 07:07 10/26/19 07:07 10/26/19 07:07 10/26/19 07:07 Intake & Output 10/25/19 10/26/19 10/27/19 06:59 06:59 06:59 Intake Total 1000 Balance 1000 Weight 91.6 kg General appearance: PRESENT: no acute distress, cooperative Head exam: PRESENT: normocephalic Eye exam: PRESENT: EOMI Neck exam: ABSENT: JVD Respiratory exam: PRESENT: clear to auscultation maribell, unlabored. ABSENT: wheezes Cardiovascular exam: PRESENT: RRR, +S1, +S2. ABSENT: diastolic murmur, systolic murmur, tachycardia GI/Abdominal exam: PRESENT: soft. ABSENT: rebound, rigid, tenderness Extremities exam: PRESENT: other - Swelling of the left hand Musculoskeletal exam: PRESENT: ambulatory Neurological exam: PRESENT: alert, awake, oriented to person, oriented to place, oriented to time Psychiatric exam: ABSENT: agitated, anxious Focused psych exam: ABSENT: pressured speech Skin exam: ABSENT: jaundice Results Laboratory Results: 10/26/19 05:44 10/25/19 23:18 10/25/19 10/25/19 10/25/19 22:13 22:13 22:13 WBC 18.4 H RBC 5.18 Hgb 16.4 Hct 46.9 MCV 91 MCH 31.7 MCHC 34.9 RDW 13.8 Plt Count 225 Seg Neutrophils % 74.1 Sodium 135.2 L Potassium 3.2 L Chloride 97 L Carbon Dioxide 29 Anion Gap 9 BUN 10 Creatinine 0.85 Est GFR ( Amer) > 60 Glucose 112 H Lactic Acid 1.0 Calcium 9.5 Total Bilirubin 1.0 AST 47 Alkaline Phosphatase 68 Total Protein 7.4 Albumin 4.1 10/25/19 10/26/19 23:18 05:44 WBC 14.8 H RBC 5.03 Hgb 16.0 Hct 45.5 MCV 90 MCH 31.9 MCHC 35.3 RDW 13.6 Plt Count 199 Seg Neutrophils % Sodium 133.1 L Potassium 3.1 L Chloride 99 Carbon Dioxide 28 Anion Gap 6 BUN 10 Creatinine 0.79 Est GFR ( Amer) > 60 Glucose 117 H Lactic Acid Calcium 8.9 Total Bilirubin AST Alkaline Phosphatase Total Protein Albumin Impressions: Wrist X-Ray 10/25/19 20:44 IMPRESSION: Anatomic alignment. No acute fracture. Postsurgical change is seen. Assessment and Plan - Diagnosis (1) Cellulitis and abscess of hand Is this a current diagnosis for this admission?: Yes Plan: status post ORIF with carpal tunnel release perilunate dislocation. Plan to be taken to surgery by orthopedics tonyanni. Leukocytosis on CBC. I have ordered and reviewed EKG which is unremarkable. Currently on ceftriaxone. I will add vancomycin for MRSA coverage given abscess. deep tissue culture and blood cultures. (2) Hypokalemia Is this a current diagnosis for this admission?: Yes Plan: Denies nausea, vomiting, diarrhea, diuretic use. Etiology is unclear. We will go ahead and replete with p.o. and IV potassium. Will recheck BMP later. Check magnesium level as well. Orders placed. (3) Hypertension Qualifiers: Hypertension type: essential hypertension Qualified Code(s): I10 - Essential (primary) hypertension Is this a current diagnosis for this admission?: Yes Plan: Resume lisinopril. - Time Time Spent with patient: 25-34 minutes
[2019-10-26] MEDS ORDERED: POTASSIUM CHLORIDE 10 MEQ TABLET.ER PO ONE (10:30)
[2019-10-26] MEDS: POTASSI CL 20 MEQ/50 ML RIDER 20 MEQ/50 ML RTUPB IV SCH ×2 (11:45→13:57)
[2019-10-26] MEDS: LISINOPRIL 10 MG TABLET PO SCH (11:45)
[2019-10-26] MEDS: VANCOMYCIN HCL 1,250 MG in DEXTROSE 5%-WATER 250 ML IV SCH (13:57)
[2019-10-26 16:46] LABS: ANION GAP 5 (5-19); BLOOD UREA NITROGEN 10 mg/dL (7-20); CALCIUM 8.8 mg/dL (8.4-10.2); CARBON DIOXIDE 28 mmol/L (22-30); CHLORIDE 101 mmol/L (98-107); GLUCOSE 111 mg/dL (75-110)
[2019-10-26] MEDS ORDERED: ONDANSETRON HCL INJ/PF 4 MG/2 ML SDV ONE (16:54)
[2019-10-26] MEDS ORDERED: FENTANYL CITRATE INJ/PF 100 MCG/2 ML AMPUL ONE (16:54)
[2019-10-26] MEDS ORDERED: LIDOCAINE 2% INJ-PF (20 MG/ML) 10 ML AMPUL ONE (16:54)
[2019-10-26] MEDS ORDERED: MIDAZOLAM 2 MG/2 ML INJ ONE (16:54)
[2019-10-26] MEDS ORDERED: PROPOFOL INJ 200 MG/20 ML VIAL IV ONE (16:55)
[2019-10-26 17:02] LABS: POTASSIUM 4.5 mmol/L (3.6-5.0)
[2019-10-26] MEDS ORDERED: BUPIVACAINE HCL 0.5 % INJ/PF 30 ML SDV ONE (17:15)
[2019-10-26] MEDS ORDERED: FENTANYL CITRATE INJ/PF 100 MCG/2 ML AMPUL IV PRN ×3 (18:01)
[2019-10-26] MEDS ORDERED: ONDANSETRON HCL INJ/PF 4 MG/2 ML SDV IV PRN (18:01)
[2019-10-26] MEDS ORDERED: MEPERIDINE HCL/PF INJ 25 MG/1 ML DISP.SYRIN IV PRN (18:01)
[2019-10-26] MEDS ORDERED: PROMETHAZINE HCL INJ 25 MG/1 ML VIAL IV PRN ×2 (18:01)
[2019-10-26] MEDS ORDERED: DIPHENHYDRAMINE HCL 50 MG/ML VIAL IV PRN (18:01)
--- NOTE | 2019-10-26 18:40 | Operative Report ---
Operative Report DATE OF SURGERY: 10/26/19 PREOPERATIVE DIAGNOSIS: Left hand abscess/cellulitis status post ORIF perilunate dislocation POSTOPERATIVE DIAGNOSIS: Same OPERATION: Removal of deep hardware left wrist with irrigation debridement left wrist SURGEON: JAMIE LOGAN ANESTHESIA: GA TISSUE REMOVED OR ALTERED: Aerobic, anaerobic, AFB, fungal culture COMPLICATIONS: None ESTIMATED BLOOD LOSS: Minimal INTRAOPERATIVE FINDINGS: Purulent drainage noted from the radial pin site no osseous defect within the carpus was appreciated to suggest osteomyelitis. PROCEDURE: Indication for above procedure: 59-year-old male who sustained perilunate dislocation subsequent underwent urgent ORIF perilunate dislocation with open carpal tunnel release. Postoperatively patient was placed in a cast. He did show improvement throughout his hospital course however on 10/25/2019 patient noted increasing redness swelling and pain with migration of his pins. He subsequently came to the emergency room where he was found to have elevated white count and findings consistent with cellulitis possible abscess. Given the fact patient was to have pins removed on 11/01/2019 decision was made to proceed with more urgent removal of the hardware with irrigation and debridement of the wrist. Risk and benefits of the surgical procedure were explained patient verbalized understanding consented for surgical procedure. Procedure In Detail: Patient was seen and evaluated in the preoperative holding area. The upper extremity was initialized and marked. Patient receiving Rocephin/Vanco IV for bacterial prophylaxis. Patient was taken back to the operative room where transferred to the operative table and placed under general anesthesia. Once they were adequately anesthetized a nonsterile tourniquet was placed on the upper extremity. A surgical team debriefing was performed ensuring all instrumentation was available, the surgical procedure was discussed with possible concerns reviewed. The upper extremity was prepped with Betadine and draped in a sterile fashion. A timeout was done identifying correct patient, procedure and extremity everyone in attendance agree with this and verbalized no concerns. The extremity was elevated the tourniquet was inflated to 250 mmHg. A 1.5 cm skin incision was made along the radial pins. Blunt dissection was performed retracting the superficial radial nerve and pins were successfully removed. Secondary 1.5 cm decision was made over the ulnar pins blunt dissection performed and pins removed. There was mild now purulent material expressed from the radial side pins possibly from the radiocarpal joint area was cultured and sent to microbiology. Wound was copiously irrigated with normal saline. Examination under anesthesia was then performed patient's wrist flexion was 35 degrees wrist extension 40 degrees. Full pronation/supination passively. C-arm fluoroscopy was obtained demonstrating successful hardware removal. There was mild residual volar intercalated segmental instability of the lunate but no evidence of subluxation with ulnar/radial deviation or wrist flexion/extension. Additional blunt dissection was performed along the radial border where patient's drainage was emanating from. No deep abscess or tract was noted throughout the surrounding soft tissues. Wound was copiously irrigated with normal saline. Utilizing the prior dorsal incision a small 1 cm additional incision was made blunt dissection performed no evidence of deep soft tissue abscess or tracking. Wound was copiously irrigated with normal saline. Ulnar incision was copiously irrigated with normal saline as well. There is no evidence of tracking to the volar incision or expressible drainage from the volar excision. Tourniquet was deflated any peripheral bleeding was controlled with bipolar cautery. Skin incisions were closed with interrupted 3-0 nylon suture. Small defect along the radial pins was left open to allow for any additional drainage. 20 cc of 0.5% bupivacaine without epinephrine was injected for postoperative pain control. Wounds were dressed Xeroform 4 x 4's and patient was placed in a volar resting splint. Sponge counts, instrument counts, needle counts were correct. Patient was then awoken from anesthesia. Transferred from the operating room table to the operating room stretcher. There was no intraoperative complications patient tolerated procedure well stable to PACU. Postoperative plan: Patient will continue on IV Rocephin and vancomycin until cultures are finalized. Pending patient's clinical response to irrigation and remain in IV antibiotics will determine appropriate antibiotic regimen.
[2019-10-26] MEDS ORDERED: HYDROMORPHONE HCL INJ/PF 2 MG/ML AMPULE IV PRN (18:41)
--- NOTE | 2019-10-26 19:04 | RADIOLOGY REPORT (SQ) ---
EXAM DESCRIPTION: NO CHG FLUORO; WRIST LEFT 2 VIEWS IMAGES COMPLETED DATE/TIME: 10/26/2019 6:26 pm REASON FOR STUDY: LEFT WRIST PIN REMOVAL COMPARISON: None. FLUOROSCOPY TIME: 48 seconds it has Images saved to PACS LIMITATIONS: None. PROCEDURE: Pin removal. FINDINGS: Images from fluoro document the procedure. IMPRESSION: Pin removal. Refer to operative note for further information. COMMENT: PQRS [id number]: Fluoroscopy time of the procedure is documented in the report. TECHNICAL DOCUMENTATION: JOB ID: [id number] 2010 [employer]- All Rights Reserved Reading location - IP/workstation name: [email or web address]
--- NOTE | 2019-10-26 19:04 | RADIOLOGY REPORT (SQ) ---
EXAM DESCRIPTION: NO CHG FLUORO; WRIST LEFT 2 VIEWS IMAGES COMPLETED DATE/TIME: 10/26/2019 6:26 pm REASON FOR STUDY: LEFT WRIST PIN REMOVAL COMPARISON: None. FLUOROSCOPY TIME: 48 seconds it has Images saved to PACS LIMITATIONS: None. PROCEDURE: Pin removal. FINDINGS: Images from fluoro document the procedure. IMPRESSION: Pin removal. Refer to operative note for further information. COMMENT: PQRS [id number]: Fluoroscopy time of the procedure is documented in the report. TECHNICAL DOCUMENTATION: JOB ID: [id number] 2010 [employer]- All Rights Reserved Reading location - IP/workstation name: [email or web address]
--- NOTE | 2019-10-26 23:22 | EKG REPORT ---
SEVERITY:- ABNORMAL ECG - SINUS RHYTHM BORDERLINE PROLONGED QT INTERVAL : Confirmed by: Isaac Alejo 26-Oct-2019 23:22:27
[2019-10-27] MEDS: VANCOMYCIN HCL 1,250 MG in DEXTROSE 5%-WATER 250 ML IV SCH ×2 (02:10→14:14)
[2019-10-27 05:45] LABS: HEMOGLOBIN 14.8 g/dL (13.5-17.0); MEAN CORPUSCULAR HEMOGLOBIN 31.6 pg (27.0-33.4); MEAN CORPUSCULAR HGB CONC 34.5 g/dL (32.0-36.0); MEAN CORPUSCULAR VOLUME 92 fl (80-97); PLATELET COUNT 188 10^3/uL (150-450); RED CELL DISTRIBUTION WIDTH 13.6 % (11.5-14.0); WHITE BLOOD COUNT 11.1 10^3/uL (4.0-10.5)
--- NOTE | 2019-10-27 06:47 | PDOC PROGRESS REPORT ---
Subjective Progress Note for:: 10/27/19 Reason For Visit: WRIST INFECTION 59-year-old black male status post a fall from roof and now postop day 1 status post I&D of a left perilunate injury. Patient is alert, oriented, and appropriate. Pain is well controlled. Patient is requesting discharge home. Cultures remain no growth so far. Patient on empiric Rocephin and vancomycin. Physical Exam Vital Signs: Temp Pulse Resp BP Pulse Ox 37.6 C 80 17 102/78 97 10/27/19 00:30 10/27/19 00:30 10/27/19 00:30 10/27/19 00:30 10/27/19 00:30 Intake & Output 10/25/19 10/26/19 10/27/19 06:59 06:59 06:59 Intake Total 1000 1895 Output Total 20 Balance 1000 1875 Weight 91.6 kg General appearance: PRESENT: no acute distress, mild distress Head exam: PRESENT: normocephalic Respiratory exam: PRESENT: unlabored Cardiovascular exam: PRESENT: RRR Vascular exam: PRESENT: normal capillary refill Musculoskeletal exam: PRESENT: other - Fingers with modest edema but brisk capillary refill and intact sensory examination Results Laboratory Results: 10/27/19 05:11 10/26/19 16:18 10/25/19 10/26/19 10/27/19 23:18 16:18 05:11 WBC 11.1 H RBC 4.70 Hgb 14.8 Hct 43.0 MCV 92 MCH 31.6 MCHC 34.5 RDW 13.6 Plt Count 188 Sodium 134.4 L Potassium 4.5 D Chloride 101 Carbon Dioxide 28 Anion Gap 5 BUN 10 Creatinine 0.74 Est GFR ( Amer) > 60 Glucose 111 H Calcium 8.8 Magnesium 2.0 Impressions: Fluoroscopy 10/26/19 00:00 IMPRESSION: Pin removal. Refer to operative note for further information. Wrist X-Ray 10/26/19 00:00 IMPRESSION: Pin removal. Refer to operative note for further information. Status: Imported from PACS Assessment & Plan - Diagnosis (1) Cellulitis and abscess of hand Is this a current diagnosis for this admission?: Yes Plan: Continue empiric Rocephin and vancomycin pending culture results. Tentative dressing changed by Dr. Lino tomorrow. - Time Time Spent with patient: 15-24 minutes Anticipated discharge: Home with Homehealth Within: within 24 hours
[2019-10-27 08:49] LABS: BLOOD UREA NITROGEN 10 mg/dL (7-20); CALCIUM 8.7 mg/dL (8.4-10.2); GLUCOSE 96 mg/dL (75-110); POTASSIUM 4.3 mmol/L (3.6-5.0)
[2019-10-27 08:54] LABS: CARBON DIOXIDE 29 mmol/L (22-30); CHLORIDE 101 mmol/L (98-107)
[2019-10-27 08:58] LABS: ANION GAP 4 (5-19)
[2019-10-27] MEDS: OXYCODONE-ACETAMINOPHEN 5-325 MG TABLET PO PRN ×2 (08:59→18:55)
[2019-10-27] MEDS: CEFTRIAXONE 2 GM/D5W RTU 2 GM/50 ML RTUPB IV SCH (08:59)
[2019-10-27] MEDS: LISINOPRIL 10 MG TABLET PO SCH (09:00)
--- NOTE | 2019-10-27 10:36 | PDOC PROGRESS REPORT ---
Subjective Progress Note for:: 10/27/19 Subjective:: Patient feels well today. Complaining of some pain in his left hand but otherwise denies any nausea vomiting, shortness of breath or chest pain. Reason For Visit: WRIST INFECTION Physical Exam Vital Signs: Temp Pulse Resp BP Pulse Ox 98.8 F 78 17 105/75 95 10/27/19 07:37 10/27/19 07:37 10/27/19 07:37 10/27/19 07:37 10/27/19 07:37 Intake & Output 10/26/19 10/27/19 10/28/19 06:59 06:59 06:59 Intake Total 1000 2375 Output Total 20 Balance 1000 2355 Weight 91.6 kg 87.9 kg General appearance: PRESENT: no acute distress, cooperative Respiratory exam: PRESENT: symmetrical, unlabored. ABSENT: accessory muscle use, retraction, tachypnea Extremities exam: PRESENT: other - Swollen left hand in dressing.. ABSENT: pedal edema Neurological exam: PRESENT: alert, awake, oriented to person, oriented to place, oriented to time Psychiatric exam: ABSENT: agitated, anxious Results Laboratory Results: 10/27/19 05:11 10/27/19 05:11 10/25/19 10/26/19 10/27/19 23:18 16:18 05:11 WBC 11.1 H RBC 4.70 Hgb 14.8 Hct 43.0 MCV 92 MCH 31.6 MCHC 34.5 RDW 13.6 Plt Count 188 Sodium 134.4 L Potassium 4.5 D Chloride 101 Carbon Dioxide 28 Anion Gap 5 BUN 10 Creatinine 0.74 Est GFR ( Amer) > 60 Glucose 111 H Calcium 8.8 Magnesium 2.0 10/27/19 05:11 WBC RBC Hgb Hct MCV MCH MCHC RDW Plt Count Sodium 133.5 L Potassium 4.3 Chloride 101 Carbon Dioxide 29 Anion Gap 4 L BUN 10 Creatinine 0.92 Est GFR ( Amer) > 60 Glucose 96 Calcium 8.7 Magnesium Impressions: Fluoroscopy 10/26/19 00:00 IMPRESSION: Pin removal. Refer to operative note for further information. Wrist X-Ray 10/26/19 00:00 IMPRESSION: Pin removal. Refer to operative note for further information. Assessment and Plan - Diagnosis (1) Cellulitis and abscess of hand Is this a current diagnosis for this admission?: Yes Plan: Patient was taken to the OR yesterday for removal of hardware and washout. Wound cultures were taken during the procedure which so far did not show any growth. Initial wound cultures done on admission which I believe were superficial shows group B strep. I will defer further management and therapy to the orthopedist. (2) Hypokalemia Is this a current diagnosis for this admission?: Yes Plan: Hypokalemia has resolved and potassium levels seem to be holding steady after adequate repletion as yesterday. No further repletion as needed. Magnesium level also within normal limits. (3) Hypertension Qualifiers: Hypertension type: essential hypertension Qualified Code(s): I10 - Essential (primary) hypertension Is this a current diagnosis for this admission?: Yes Plan: Continue lisinopril - Plan Summary Summary: I will sign off. Please call [phone] with questions. - Time Time Spent with patient: Less than 15 minutes
[2019-10-28] MEDS: VANCOMYCIN HCL 1,250 MG in DEXTROSE 5%-WATER 250 ML IV SCH ×2 (02:30→13:25)
[2019-10-28 06:07] LABS: HEMOGLOBIN 15.7 g/dL (13.5-17.0); MEAN CORPUSCULAR HEMOGLOBIN 31.8 pg (27.0-33.4); MEAN CORPUSCULAR VOLUME 91 fl (80-97); PLATELET COUNT 212 10^3/uL (150-450); RED BLOOD COUNT 4.94 10^6/uL (4.35-5.55)
[2019-10-28] MEDS: CEFTRIAXONE 2 GM/D5W RTU 2 GM/50 ML RTUPB IV SCH (09:26)
[2019-10-28] MEDS: LISINOPRIL 10 MG TABLET PO SCH (09:26)
[2019-10-28 12:50] VITALS: BP 129/93
--- NOTE | 2019-10-28 13:28 | PDOC DISCHARGE SUMMARY ---
Impression - Admit/DC Date/PCP Admission Date/Primary Care Provider: 10/25/19 23:46 ANTHONY HANCOCK Discharge Date: 10/28/19 - Discharge Diagnosis (1) Cellulitis and abscess of hand Is this a current diagnosis for this admission?: Yes - Assessment Summary: I will sign off. Please call [phone] with questions. - Additional Information Resuscitation Status: Full Code Discharge Activity: No Lifting Over 10 Pounds, No Lifting/Push/Pulling Referrals: JAMIE LOGAN DO [ACTIVE STAFF] - Prescriptions: Amoxicillin/Potassium Clav [Augmentin 875-125 Tablet] 1 tab PO Q12 #20 tablet Oxycodone HCl/Acetaminophen [Percocet 7.5-325 mg Tablet] 1 tab PO Q6 PRN #25 tab PRN Reason: Home Medications: Lisinopril [Prinivil 10 mg Tablet] 10 mg PO DAILY 08/26/19 Amoxicillin/Potassium Clav [Augmentin 875-125 Tablet] 1 tab PO Q12 #20 tablet 10/28/19 Oxycodone HCl/Acetaminophen [Percocet 7.5-325 mg Tablet] 1 tab PO Q6 PRN #25 tab 10/28/19 History of Present Illiness History of Present Illness: PACHECO KHAN is a 59 year old male who presented to emergency room with increasing redness swelling and pain along with drainage from 1 of the pin sites. Patient states since his most recent office visit he was having no issues but did remove the brace and begin more aggressive motion of his wrist which caused swelling and noticed the pins began to move. Patient then presented to the emergency room due to increasing redness and swelling that occurred over the past 24 hours. In the emergency room patient was found to have elevated white count and drainage. Cultures were obtained. Patient was started on antibiotics. Patient notes numbness in his fingertips are relatively unchanged but has considerable swelling and pain along the dorsum of the wrist. Hospital Course Hospital Course: Patient was admitted to orthopedic service on 10/25/2019. He subsequently underwent irrigation debridement with hardware removal on 10/26/2019. Patient progressed appropriately throughout his hospital course the swelling and pain notably improved along with his leukocytosis. Intraoperative cultures demonstrated group B streptococcus in the superficial and ER cultures. Given patient's response to IV antibiotics and surgery decision was made that he was stable for discharge to home on p.o. antibiotics and majority of his symptoms are likely secondary to infected superficial hardware as opposed to deep infection.. Patient subsequently seen for hypokalemia throughout his hospital course as well which was corrected by the hospitalist service and deemed no further follow-up required. Physical Exam Vital Signs: Temp Pulse Resp BP Pulse Ox 98.7 F 73 17 129/93 H 95 10/28/19 10:00 10/28/19 10:00 10/28/19 10:00 10/28/19 10:00 10/28/19 10:00 Intake & Output 10/27/19 10/28/19 10/29/19 06:59 06:59 06:59 Intake Total 2375 2250 250 Output Total 20 Balance 2355 2250 250 Weight 87.9 kg 93.1 kg General appearance: PRESENT: no acute distress, well-developed, well-nourished Head exam: PRESENT: atraumatic, normocephalic Eye exam: PRESENT: conjunctiva pink, EOMI, PERRLA. ABSENT: scleral icterus Ear exam: PRESENT: normal external ear exam Mouth exam: PRESENT: moist, tongue midline Neck exam: ABSENT: carotid bruit, JVD, lymphadenopathy, thyromegaly Respiratory exam: PRESENT: clear to auscultation maribell. ABSENT: rales, rhonchi, wheezes Cardiovascular exam: PRESENT: RRR. ABSENT: diastolic murmur, rubs, systolic murmur Pulses: PRESENT: normal dorsalis pedis pul Vascular exam: PRESENT: normal capillary refill GI/Abdominal exam: PRESENT: normal bowel sounds, soft. ABSENT: distended, guarding, mass, organolmegaly, rebound, tenderness Rectal exam: PRESENT: deferred Extremities exam: PRESENT: full ROM. ABSENT: calf tenderness, clubbing, pedal edema Musculoskeletal exam: PRESENT: other - Left wrist: Dressing change today. Significant improved swelling throughout the dorsum of the hand and wrist. Patient has full range of motion index through small finger without discomfort. Hypoesthesias on the distal tip which equivalent to prior examination. EPL/FPL intact. Pain with terminal flexion extension as anticipated given patient's prior injury. No pain with mid range of motion. Neurological exam: PRESENT: alert, awake, oriented to person, oriented to place, oriented to time, oriented to situation, CN II-XII grossly intact. ABSENT: motor sensory deficit Psychiatric exam: PRESENT: appropriate affect, normal mood. ABSENT: homicidal ideation, suicidal ideation Skin exam: PRESENT: dry, intact, warm. ABSENT: cyanosis, rash Results Laboratory Results: WBC 9.0 10^3/uL (4.0-10.5) 10/28/19 05:37 RBC 4.94 10^6/uL (4.35-5.55) 10/28/19 05:37 Hgb 15.7 g/dL (13.5-17.0) 10/28/19 05:37 Hct 45.0 % (37.9-51.0) 10/28/19 05:37 MCV 91 fl (80-97) 10/28/19 05:37 MCH 31.8 pg (27.0-33.4) 10/28/19 05:37 MCHC 35.0 g/dL (32.0-36.0) 10/28/19 05:37 RDW 14.0 % (11.5-14.0) 10/28/19 05:37 Plt Count 212 10^3/uL (150-450) 10/28/19 05:37 Lymph % (Auto) 15.2 % (13-45) 10/25/19 22:13 Hardy % (Auto) 9.5 % (3-13) 10/25/19 22:13 Eos % (Auto) 0.2 % (0-6) 10/25/19 22:13 Baso % (Auto) 1.0 % (0-2) 10/25/19 22:13 Absolute Neuts (auto) 13.7 10^3/uL (1.7-8.2) H 10/25/19 22:13 Absolute Lymphs (auto) 2.8 10^3/uL (0.5-4.7) 10/25/19 22:13 Absolute Monos (auto) 1.7 10^3/uL (0.1-1.4) H 10/25/19 22:13 Absolute Eos (auto) 0.0 10^3/uL (0.0-0.6) 10/25/19 22:13 Absolute Basos (auto) 0.2 10^3/uL (0.0-0.2) 10/25/19 22:13 Seg Neutrophils % 74.1 % (42-78) 10/25/19 22:13 Sodium 133.5 mmol/L (137-145) L 10/27/19 05:11 Potassium 4.3 mmol/L (3.6-5.0) 10/27/19 05:11 Chloride 101 mmol/L (98-107) 10/27/19 05:11 Carbon Dioxide 29 mmol/L (22-30) 10/27/19 05:11 Anion Gap 4 (5-19) L 10/27/19 05:11 BUN 10 mg/dL (7-20) 10/27/19 05:11 Creatinine 0.92 mg/dL (0.52-1.25) 10/27/19 05:11 Est GFR ( Amer) > 60 (>60) 10/27/19 05:11 Est GFR (MDRD) Non-Af > 60 (>60) 10/27/19 05:11 Glucose 96 mg/dL (75-110) 10/27/19 05:11 Lactic Acid 1.0 mmol/L (0.7-2.1) 10/25/19 22:13 Calcium 8.7 mg/dL (8.4-10.2) 10/27/19 05:11 Magnesium 2.0 mg/dL (1.6-2.3) 10/25/19 23:18 Total Bilirubin 1.0 mg/dL (0.2-1.3) 10/25/19 22:13 Direct Bilirubin 0.1 mg/dL (0.0-0.4) 10/25/19 22:13 Neonat Total Bilirubin Not Reportable 10/25/19 22:13 Neonat Direct Bilirubin Not Reportable 10/25/19 22:13 Neonat Indirect Bili Not Reportable 10/25/19 22:13 AST 47 U/L (17-59) 10/25/19 22:13 ALT 49 U/L (<50) 10/25/19 22:13 Alkaline Phosphatase 68 U/L (38-126) 10/25/19 22:13 Total Protein 7.4 g/dL (6.3-8.2) 10/25/19 22:13 Albumin 4.1 g/dL (3.5-5.0) 10/25/19 22:13 Impressions: Wrist X-Ray 06/02/20 20:44 IMPRESSION: Anatomic alignment. No acute fracture. Postsurgical change is seen. Fluoroscopy 10/26/19 00:00 IMPRESSION: Pin removal. Refer to operative note for further information. Wrist X-Ray 10/26/19 00:00 IMPRESSION: Pin removal. Refer to operative note for further information. Plan Plan of Treatment: Patient progressed after I&D and IV antibiotics. Culture results are positive for Streptococcus and thus he will be treated with Augmentin to provide appropriate coverage. Septic arthritis is less likely given patient significant improved response with wrist range of motion and at the pin sites and thus I do not feel long-term IV antibiotics are required. At this point patient is orthopedically safe for discharge to home. Patient is to continue the splint along with digit range of motion. Is to call with any questions or concerns including increasing redness, swelling, pain or temperature greater than 101.5. Patient was read above instructions understood above instructions and stable for discharge. Stroke Is this a Stroke Patient?: No Acute Heart Failure - Is this a Heart Failure Patient?: No
[2019-10-28] MEDS ORDERED: PHARMACY COMMUNICATION ORDER MC SCH (13:30)
== END 2019-10-28 13:44 | disposition home or self-care (01) | DRG 506 ==
LOC: ER 20:15 → EH 23:46 → 4S 10-26 02:15
PROVIDERS: ADMIT Orthopaedic Surgery; ATTEND Orthopaedic Surgery
PROC: 0RPP04Z Removal of Internal Fixation Device from Left Wrist Joint, Open Approach (ICD-10-PCS; principal; 2019-10-25)
DX: T84.613A Infection and inflammatory reaction due to internal fixation device of left radius, initial encounter (principal); L03.114 Cellulitis of left upper limb; B95.1 Streptococcus, group B, as the cause of diseases classified elsewhere; E87.6 Hypokalemia; I10 Essential (primary) hypertension; F17.210 Nicotine dependence, cigarettes, uncomplicated; Z83.3 Family history of diabetes mellitus; Z82.49 Family history of ischemic heart disease and other diseases of the circulatory system; Z88.8 Allergy status to other drugs, medicaments and biological substances; Z79.899 Other long term (current) drug therapy; Y92.008 Other place in unspecified non-institutional (private) residence as the place of occurrence of the external cause; D72.829 Elevated white blood cell count, unspecified
CPT/HCPCS: 01830; 36415; 80048; 80053; 83605; 83735; 85025; 85027; 87040; 87070; 87075; 87077; 87205; 93005; 93010; 96360; 96361; 96365; 99291; 99292; J0696; J2250; J2405; J2704; J3010; J3370; J3480; J3490; J7060; J7120

== ENCOUNTER → 2019-11-17 | Outpatient (CLI) | payer MEDICAID ==
[2019-11-17 09:13] LABS: ABSOLUTE BASOPHILS # (AUTO) 0.1 10^3/uL (0.0-0.2); ABSOLUTE EOSINOPHILS # (AUTO) 0.1 10^3/uL (0.0-0.6); ABSOLUTE MONOCYTES (AUTO) 0.9 10^3/uL (0.1-1.4); ABSOLUTE NEUT (AUTO) 10.2 10^3/uL (1.7-8.2); BASOPHILS % (AUTO) 0.4 % (0-2); EOSINOPHILS % (AUTO) 0.5 % (0-6); HEMATOCRIT 45.9 % (37.9-51.0); HEMOGLOBIN 15.8 g/dL (13.5-17.0); LYMPHOCYTES % (AUTO) 15.3 % (13-45); MEAN CORPUSCULAR HEMOGLOBIN 31.7 pg (27.0-33.4); MEAN CORPUSCULAR HGB CONC 34.4 g/dL (32.0-36.0); MEAN CORPUSCULAR VOLUME 92 fl (80-97); MONOCYTES % (AUTO) 6.9 % (3-13); PLATELET COUNT 303 10^3/uL (150-450); RED BLOOD COUNT 4.98 10^6/uL (4.35-5.55); RED CELL DISTRIBUTION WIDTH 13.6 % (11.5-14.0); SEGMENTED NEUTROPHILS % (AUTO) 76.9 % (42-78); TOTAL CELLS COUNTED % (AUTO) 100 %; WHITE BLOOD COUNT 13.3 10^3/uL (4.0-10.5)
[2019-11-17 10:05] LABS: ERYTHROCYTE SEDIMENTATION RATE 10 mm/hr (0-20)
== END ==
LOC: OD 08:29
PROVIDERS: ATTEND Orthopaedic Surgery
DX: M25.532 Pain in left wrist (principal)
CPT/HCPCS: 36415; 85025; 85652; 86140

== ENCOUNTER → 2019-11-21 | Outpatient (CLI) | payer MEDICAID ==
[~2019-11-21] MED LIST: KETAMINE HCL INJ 500 MG/10 ML VIAL ONE
--- NOTE | 2019-11-21 14:37 | RADIOLOGY REPORT (SQ) ---
EXAM DESCRIPTION: MRI LT UPPER JOINT COMBO IMAGES COMPLETED DATE/TIME: 11/21/2019 12:46 pm REASON FOR STUDY: S63.035D DISLOCATION OF MIDCARPAL JOINT OF LEFT WRIST, SUBS ENCNTR S63.035D DISLO CATION OF MIDCARPAL JOINT OF LEFT WRIST, SUBS COMPARISON: 10/26/2019 intraoperative radiographs. 10/25/2019 preoperative radiographs. TECHNIQUE: Multiplanar imaging of the left wrist to include T1-weighted, postcontrast T1-weighted, a nd T2-weighted images. CONTRAST TYPE AND DOSE: 15 mL Prohance. RENAL FUNCTION: Not indicated. ACR Type II contrast agent associated with few, if any, unconfounded cases of NSF LIMITATIONS: This study is severely limited due to artifact related to metal. This includes fixatio n plate and screw along the long and middle fingers but also small metallic fragments persistent martir g the palmar aspect of the wrist. As such, large portions of the wrist are obscured with signal drop out. Inhomogeneous fat suppression on T2 sequences. FINDINGS: BONE MARROW: Signal in the lunate looks abnormal. Low signal T1. Lesser changes in the p roximal scaphoid. SOFT TISSUES: Intermediate T1 signal diffusely about the carpus is difficult to further evaluate. Th is shows generalized enhancement, likely inflammatory tissue and synovitis. No drainable collection detected allowing for limitations. There is also cellulitis in the dorsal and palmar tissues. OTHER: No other significant finding. IMPRESSION: 1. This study is significantly limited. No gross abscess, however large portions of the carpus and s oft tissues are not well assessed due to metallic blooming and inhomogeneity of the sequences. TECHNICAL DOCUMENTATION: JOB ID: [id number] 2010 [employer]- All Rights Reserved Reading location - IP/workstation name: [email or web address]
== END ==
LOC: RAD 11:16
PROVIDERS: ATTEND Orthopaedic Surgery
DX: S63.03 Subluxation and dislocation of midcarpal joint (principal); X58.XXXD Exposure to other specified factors, subsequent encounter; M25.432 Effusion, left wrist
CPT/HCPCS: 82565

== ENCOUNTER 2019-11-22 10:37 | Inpatient (IN) | payer MEDICAID ==
[~2019-11-22 10:37] MED LIST changes: +CEFAZOLIN 2 GM/D5W RTU 2 GM/50 ML RTUPB IV PRN; -KETAMINE HCL INJ 500 MG/10 ML VIAL ONE
[2019-11-22] MEDS ORDERED: CEFAZOLIN 2 GM/D5W RTU 2 GM/50 ML RTUPB IV ONE (11:36)
[2019-11-22] MEDS ORDERED: MIDAZOLAM 2 MG/2 ML INJ ONE (14:05)
[2019-11-22] MEDS ORDERED: PROPOFOL INJ 200 MG/20 ML VIAL IV ONE (14:05)
[2019-11-22] MEDS ORDERED: FENTANYL CITRATE INJ/PF 100 MCG/2 ML AMPUL ONE ×2 (14:05→15:07)
[2019-11-22] MEDS ORDERED: BUPIVACAINE HCL 0.5 % INJ/PF 30 ML SDV ONE (14:10)
[2019-11-22] MEDS ORDERED: BACITRACIN INJ 50,000 UNIT VIAL ONE (14:11)
[2019-11-22] MEDS ORDERED: LIDOCAINE 1% INJ-PF (10 MG/ML) 30 ML SDV ONE (14:11)
[2019-11-22] MEDS ORDERED: FENTANYL CITRATE INJ/PF 100 MCG/2 ML AMPUL IV PRN ×3 (14:41)
[2019-11-22] MEDS ORDERED: PROMETHAZINE HCL INJ 25 MG/1 ML VIAL IV PRN (14:41)
[2019-11-22] MEDS ORDERED: MEPERIDINE HCL/PF INJ 25 MG/1 ML DISP.SYRIN IV PRN (14:41)
[2019-11-22] MEDS ORDERED: DIPHENHYDRAMINE HCL 50 MG/ML VIAL IV PRN (14:41)
[2019-11-22] MEDS ORDERED: MORPHINE SULFATE 10 MG/ML INJ IV PRN ×2 (14:41→15:16)
--- NOTE | 2019-11-22 15:13 | Operative Report ---
Operative Report DATE OF SURGERY: 11/22/19 PREOPERATIVE DIAGNOSIS: Left wrist infection status post ORIF perilunate disloc ation POSTOPERATIVE DIAGNOSIS: Same OPERATION: Irrigation and debridement left wrist with wrist arthrotomy. SURGEON: JAMIE LOGAN ANESTHESIA: GA TISSUE REMOVED OR ALTERED: Aerobic, anaerobic, AFB and fungal culture COMPLICATIONS: None PROCEDURE: Indication for above procedure: 59-year-old male who sustained perilunate dislocation with acute carpal tunnel syndrome. Patient underwent urgent surgery for his perilunate dislocation. He subsequently developed pin site infections and thus underwent irrigation debridement which was successful initially but patient continued to have pain and swelling. At that point MRI was ordered which demonstrated persistent cellulitis. On examination patient continued to have swelling throughout the volar and dorsal aspect of the wrist and thus there is concern for possible res idual intra-articular infection thus decision was made to proceed with additional irrigation and debridement. Procedure In Detail: Patient was seen and evaluated in the preoperative holding area. The Left upper extremity was initialized and marked. Patient received 2g of Ancef IV for bacterial prophylaxis. Patient was taken back to the operative room where transferred to the operative table and placed under anesthesia. Once they were adequately anesthetized a nonsterile tourniquet was placed on the upper extremity. A surgical team debriefing was performed ensuring all instrumentation was available, the surgical procedure was discussed with possible concerns reviewed. 20 cc of 1% lidocaine without epinephrine was injected. The upper extremity was prepped with chlorhexidine and alcohol and draped in a sterile fashion. A timeout was done identifying correct patient, procedure and extremity everyone in attendance agree with this and verbalized no concerns. The extremity was elevated the tourniquet was inflated to 250 mmHg. Volar skin incision was utilized no underlying abscess or fluid collection was appreciated. There was tenosynovitis of the flexor tendon tendons. Median nerve was identified and flexor tenosynovectomy was performed. Tenosynovium was sent to microbiology for aerobic, anaerobic, AFB and fungal there was no extension or sinus tract into the joint volarly. Wound was copiously irrigated with normal saline skin incision was closed with interrupted 3-0 nylon suture. Dorsal skin incision was opened. Interval between the third and fourth dorsal compartment was opened and the fourth dorsal compartment was retracted. Small incision was made within the capsule was small amount of fluid but no significant effusion was appreciated. Cultures were obtained from the deep dorsal wound no purulent material was expressed. This area was copiously irrigated with normal saline. Skin incision was closed with interrupted 3-0 nylon suture. Tourniquet was deflated. Wound was dressed Xeroform 4 x 4's and a soft dressing. Sponge counts, instrument counts, needle counts were correct. Patient was then awoken from anesthesia. Transferred from the operating room table to the operating room stretcher. There was no intraoperative complications patient tolerated procedure well stable to PACU. Postoperative plan: Patient will be admitted for IV antibiotics. Continues to have recurrent swelling and infection concerning for possible septic arthritis because of these findings have recommended more aggressive treatment with IV antibiotics. Given patient's previous microbiology findings of group B strep will be started on Rocephin and vancomycin prophylactically.
[2019-11-22] MEDS ORDERED: ONDANSETRON HCL INJ/PF 4 MG/2 ML SDV ONE (15:16)
[2019-11-22] MEDS ORDERED: HYDRALAZINE HCL INJ/PF 20 MG/1 ML SDV ONE (15:36)
[2019-11-22] MEDS: MORPHINE SULFATE 10 MG/ML INJ ONE ×2 (15:40→15:45)
[2019-11-22] MEDS ORDERED: CEFTRIAXONE 2 GM/D5W RTU 2 GM/50 ML RTUPB IV SCH ×2 (16:00→18:00)
[2019-11-22] MEDS ORDERED: HYDRALAZINE HCL INJ/PF 20 MG/1 ML SDV IV ONE (16:15)
[2019-11-22] MEDS: OXYCODONE-ACETAMINOPHEN 5-325 MG TABLET PO PRN (17:53)
[2019-11-23] MEDS: OXYCODONE-ACETAMINOPHEN 5-325 MG TABLET PO PRN ×3 (00:14→12:54)
[2019-11-23 06:18] LABS: ABSOLUTE BASOPHILS # (AUTO) 0.1 10^3/uL (0.0-0.2); ABSOLUTE EOSINOPHILS # (AUTO) 0.1 10^3/uL (0.0-0.6); ABSOLUTE LYMPHOCYTES (AUTO) 2.2 10^3/uL (0.5-4.7); ABSOLUTE MONOCYTES (AUTO) 0.8 10^3/uL (0.1-1.4); ABSOLUTE NEUT (AUTO) 7.2 10^3/uL (1.7-8.2); BASOPHILS % (AUTO) 0.9 % (0-2); EOSINOPHILS % (AUTO) 0.5 % (0-6); HEMATOCRIT 45.4 % (37.9-51.0); HEMOGLOBIN 15.7 g/dL (13.5-17.0); LYMPHOCYTES % (AUTO) 21.4 % (13-45); MEAN CORPUSCULAR HEMOGLOBIN 31.7 pg (27.0-33.4); MEAN CORPUSCULAR HGB CONC 34.6 g/dL (32.0-36.0); MEAN CORPUSCULAR VOLUME 92 fl (80-97); MONOCYTES % (AUTO) 7.6 % (3-13); PLATELET COUNT 219 10^3/uL (150-450); RED BLOOD COUNT 4.96 10^6/uL (4.35-5.55); SEGMENTED NEUTROPHILS % (AUTO) 69.6 % (42-78); TOTAL CELLS COUNTED % (AUTO) 100 %; WHITE BLOOD COUNT 10.4 10^3/uL (4.0-10.5)
[2019-11-23 06:38] LABS: BLOOD UREA NITROGEN 12 mg/dL (7-20); CALCIUM 9.3 mg/dL (8.4-10.2); GLUCOSE 91 mg/dL (75-110); POTASSIUM 4.1 mmol/L (3.6-5.0)
[2019-11-23 06:44] LABS: ANION GAP 6 (5-19); CARBON DIOXIDE 27 mmol/L (22-30); CHLORIDE 102 mmol/L (98-107)
--- NOTE | 2019-11-23 07:27 | PDOC PROGRESS REPORT ---
Subjective Progress Note for:: 11/23/19 Reason For Visit: M25.532 PAIN IN LEFT WRIST 59-year-old black male status post I&D of the left hand infectious process yesterday. Intraoperative cultures are pending. Patient started on empiric Rocephin and vancomycin because of previous cultures growing strep. Patient in no acute distress this morning but continues to complain of pain in the hand. Physical Exam Vital Signs: Temp Pulse Resp BP Pulse Ox 37.2 C 67 18 160/86 H 100 11/22/19 22:00 11/22/19 22:00 11/22/19 22:00 11/22/19 22:00 11/22/19 22:00 Intake & Output 11/22/19 11/23/19 11/24/19 06:59 06:59 06:59 Intake Total 2140 Output Total 205 Balance 1935 Weight 90.2 kg General appearance: PRESENT: mild distress Head exam: PRESENT: normocephalic Respiratory exam: PRESENT: unlabored Cardiovascular exam: PRESENT: RRR GI/Abdominal exam: PRESENT: soft Rectal exam: PRESENT: deferred Musculoskeletal exam: PRESENT: other - Right hand in a compressive dressing. Minimal swelling in the digits. Sensory examination is intact in each of the 5 digits of the left hand. There is brisk capillary refill in each of the digits. Results Laboratory Results: 11/23/19 05:13 11/23/19 05:13 11/23/19 11/23/19 05:13 05:13 WBC 10.4 RBC 4.96 Hgb 15.7 Hct 45.4 MCV 92 MCH 31.7 MCHC 34.6 RDW 14.0 Plt Count 219 Seg Neutrophils % 69.6 Sodium 135.0 L Potassium 4.1 Chloride 102 Carbon Dioxide 27 Anion Gap 6 BUN 12 Creatinine 0.87 Est GFR ( Amer) > 60 Glucose 91 Calcium 9.3 Status: Imported from PACS Assessment & Plan - Diagnosis (1) Cellulitis and abscess of hand Is this a current diagnosis for this admission?: Yes Plan: Plan for placement of a PICC line and discharge home on empiric antibiotics once social work and make the appropriate arrangements. - Time Time Spent with patient: 15-24 minutes Anticipated discharge: Home with Homehealth Within: within 24 hours
--- NOTE | 2019-11-23 11:10 | RADIOLOGY REPORT (SQ) ---
EXAM DESCRIPTION: PICC INSERTION IMAGES COMPLETED DATE/TIME: 11/23/2019 10:56 am REASON FOR STUDY: home IV antibiotics for 6 wks M25.532 PAIN IN LEFT WRIST S63.035D DISLOCATION OF MIDCARPAL JOINT OF LEFT WRIST, SUBS COMPARISON: None. FLUOROSCOPY TIME: 52 seconds 1 images saved to PACS. TECHNIQUE: Fluoroscopic and ultrasound guided PICC placement. LIMITATIONS: None. PROCEDURE: After written consent and assessment were obtained, the patient was brought into the fluo roscopy room and placed supine on the table. Ultrasound evaluation of potential access sites were per formed. After successfully identifying a patent right upper extremity basilic vein, the right upper a rm was prepped and draped in a sterile fashion along with the ultrasound probe. The entry site was an esthetized with 1% lidocaine. A 21 gauge 7 cm needle was advanced through the skin and into the right basilic vein under live ultrasound guidance. An ultrasound image was saved to PACS confirming acces s site. A .018 guide wire was then inserted through the needle and into the venous system. The needl e was then removed and an 11 blade scalpel was used to make a 1cm skin incision. A 5 fr peel-away sh eath was advanced over the wire and into the venous system. A measurement was then made using the exi sting wire and live fluoroscopic guidance. The wire was then removed and trimmed. The PICC was advanc ed through the peel-away sheath and into the venous system. The peel-away sheath was removed and the catheter was adhered to the patients arm with a stat lock. The catheter was then aspirated and flushe d and a sterile bandage was placed over the access site. A fluoroscopic spot image was saved to PACS confirming the catheter tip within the SVC. IMPRESSION: SUCCESSFUL PLACEMENT OF A 5 FR DUAL LUMEN 38 CM PICC IN THE RIGHT BASILIC VEIN. COMMENT: Patient medication list reviewed: Yes- Quality ID# 130:Eligible professional attests to doc umenting in the medical record they obtained, updated, or reviewed the patient's current medications. . Quality ID 145: Final reports for procedures using fluoroscopy that document radiation exposure amina emily, or exposure time and number of fluorographic images (if radiation exposure indices are not avail able) Quality ID #76: The patient was prepped and draped using maximum sterile barrier technique including cap, mask, sterile gown, sterile gloves, a large sterile sheet, hand hygiene, and 2% Chlorhexidine fo r cutaneous antisepsis. When ultrasound is used, sterile ultrasound techniques are followed requiring sterile gel and sterile probes. TECHNICAL DOCUMENTATION: JOB ID: [id number] 2010 [employer]- All Rights Reserved rev-10/09 Reading location - IP/workstation name: [email or web address] [id number]
[2019-11-23] MEDS ORDERED: NORMAL SALINE 10 ML SDV (AFTER EACH USE) IV PRN (12:00)
[2019-11-23 13:37] VITALS: BP 151/90
[2019-11-23] MEDS ORDERED: CEFTRIAXONE 2 GM/D5W RTU 2 GM/50 ML RTUPB IV ONE (14:00)
[2019-11-23] MEDS ORDERED: NORMAL SALINE 10 ML SDV (SCHEDULED) IV SCH (22:00)
--- NOTE | 2019-11-29 11:31 | PDOC DISCHARGE SUMMARY ---
Impression - Admit/DC Date/PCP Admission Date/Primary Care Provider: 11/22/19 13:44 Discharge Date: 11/23/19 - Discharge Diagnosis (1) Cellulitis and abscess of hand Is this a current diagnosis for this admission?: Yes - Additional Information Discharge Diet: As Tolerated Discharge Activity: No Lifting Over 10 Pounds, No Lifting/Push/Pulling Referrals: JAMIE LOGAN DO [ACTIVE STAFF] - 12/05/19 8:20 am Prescriptions: Oxycodone HCl/Acetaminophen [Percocet 5-325 mg Tablet] 1 tab PO Q6HP PRN #25 PRN Reason: For Pain Home Medications: Lisinopril [Prinivil 10 mg Tablet] 10 mg PO DAILY 08/26/19 Oxycodone HCl/Acetaminophen [Percocet 5-325 mg Tablet] 1 tab PO Q6HP PRN #25 11/23/19 History of Present Illiness History of Present Illness: PACHECO KHAN is a 59 year old malewho sustained perilunate dislocation with acute carpal tunnel syndrome. Patient underwent urgent surgery for his perilunate dislocation. He subsequently developed pin site infections and thus underwent irrigation debridement which was successful initially but patient continued to have pain and swelling. At that point MRI was ordered which demonstrated persistent cellulitis. On examination patient continued to have swelling throughout the volar and dorsal aspect of the wrist and thus there is concern for possible residual intra-articular infection thus decision was made to proceed with additional irrigation and debridement. Hospital Course Hospital Course: Patient underwent irrigation and debridement of the left wrist. Intraoperative findings did not demonstrate significant abscess or purulence however there was concern for possible septic wrist given patient's continued symptoms despite normal labs and previous irrigation and debridement along with antibiotics. Patient tolerated surgical procedure. Patient was started on Rocephin 2 g IV according to prior cultures. Patient progressed appropriately throughout his hospital course. Given previous culture results he was set up for a PICC line and to receive 6 weeks of IV antibiotics. Final cultures were consistent with methicillin sensitive staph organism. Physical Exam Vital Signs: Temp Pulse Resp BP Pulse Ox 98.6 F 69 17 151/90 H 91 L 11/23/19 13:34 11/23/19 13:34 11/23/19 13:34 11/23/19 13:34 11/23/19 13:34 General appearance: PRESENT: no acute distress, well-developed, well-nourished Head exam: PRESENT: atraumatic, normocephalic Eye exam: PRESENT: conjunctiva pink, EOMI, PERRLA. ABSENT: scleral icterus Ear exam: PRESENT: normal external ear exam Mouth exam: PRESENT: moist, tongue midline Neck exam: ABSENT: carotid bruit, JVD, lymphadenopathy, thyromegaly Respiratory exam: PRESENT: clear to auscultation maribell. ABSENT: rales, rhonchi, wheezes Cardiovascular exam: PRESENT: RRR. ABSENT: diastolic murmur, rubs, systolic murmur Pulses: PRESENT: normal dorsalis pedis pul Vascular exam: PRESENT: normal capillary refill GI/Abdominal exam: PRESENT: normal bowel sounds, soft. ABSENT: distended, guarding, mass, organolmegaly, rebound, tenderness Rectal exam: PRESENT: deferred Extremities exam: PRESENT: full ROM. ABSENT: calf tenderness, clubbing, pedal edema Musculoskeletal exam: PRESENT: other - Left wrist: Mild swelling noted along the dorsum of the hand and digits. No sensory deficits. Intact flexion-extension of the IP/MP joints. Neurological exam: PRESENT: alert, awake, oriented to person, oriented to place, oriented to time, oriented to situation, CN II-XII grossly intact. ABSENT: motor sensory deficit Psychiatric exam: PRESENT: appropriate affect, normal mood. ABSENT: homicidal ideation, suicidal ideation Skin exam: PRESENT: dry, intact, warm. ABSENT: cyanosis, rash Results Laboratory Results: WBC 10.4 10^3/uL (4.0-10.5) 11/23/19 05:13 RBC 4.96 10^6/uL (4.35-5.55) 11/23/19 05:13 Hgb 15.7 g/dL (13.5-17.0) 11/23/19 05:13 Hct 45.4 % (37.9-51.0) 11/23/19 05:13 MCV 92 fl (80-97) 11/23/19 05:13 MCH 31.7 pg (27.0-33.4) 11/23/19 05:13 MCHC 34.6 g/dL (32.0-36.0) 11/23/19 05:13 RDW 14.0 % (11.5-14.0) 11/23/19 05:13 Plt Count 219 10^3/uL (150-450) 11/23/19 05:13 Lymph % (Auto) 21.4 % (13-45) 11/23/19 05:13 [place] % (Auto) 7.6 % (3-13) 11/23/19 05:13 Eos % (Auto) 0.5 % (0-6) 11/23/19 05:13 Baso % (Auto) 0.9 % (0-2) 11/23/19 05:13 Absolute Neuts (auto) 7.2 10^3/uL (1.7-8.2) 11/23/19 05:13 Absolute Lymphs (auto) 2.2 10^3/uL (0.5-4.7) 11/23/19 05:13 Absolute Monos (auto) 0.8 10^3/uL (0.1-1.4) 11/23/19 05:13 Absolute Eos (auto) 0.1 10^3/uL (0.0-0.6) 11/23/19 05:13 Absolute Basos (auto) 0.1 10^3/uL (0.0-0.2) 11/23/19 05:13 Seg Neutrophils % 69.6 % (42-78) 11/23/19 05:13 Sodium 135.0 mmol/L (137-145) L 11/23/19 05:13 Potassium 4.1 mmol/L (3.6-5.0) 11/23/19 05:13 Chloride 102 mmol/L (98-107) 11/23/19 05:13 Carbon Dioxide 27 mmol/L (22-30) 11/23/19 05:13 Anion Gap 6 (5-19) 11/23/19 05:13 BUN 12 mg/dL (7-20) 11/23/19 05:13 Creatinine 0.87 mg/dL (0.52-1.25) 11/23/19 05:13 Est GFR ( Amer) > 60 (>60) 11/23/19 05:13 Est GFR (MDRD) Non-Af > 60 (>60) 11/23/19 05:13 Glucose 91 mg/dL (75-110) 11/23/19 05:13 Calcium 9.3 mg/dL (8.4-10.2) 11/23/19 05:13 SARS-CoV-2 (PCR) NEGATIVE (NEGATIVE) 11/22/19 10:40 Impressions: PICC Line Insertion 11/23/19 00:00 IMPRESSION: SUCCESSFUL PLACEMENT OF A 5 FR DUAL LUMEN 38 CM PICC IN THE RIGHT BASILIC VEIN. Plan Plan of Treatment: Patient will continue IV antibiotics for 6 weeks which includes Rocephin 2 g. We will begin range of motion of the wrist but no heavy lifting or weightbearing. We will continue on Percocet as needed for pain. Patient is to follow the office with me in 10-14 days for recheck or sooner if issues arise. Patient to call with any questions or concerns including increasing redness, swelling, pain, temperature greater than 101.5. Patient verbalized understanding consented for surgical procedure. Patient was previously for discharge to home on 11/23/2019. Stroke Is this a Stroke Patient?: No Acute Heart Failure - Is this a Heart Failure Patient?: No
== END 2019-11-23 14:23 | disposition home health service (06) | DRG 501 ==
LOC: OROUT 10:37 → INOR 13:44 → 4S 16:57
PROVIDERS: ADMIT Orthopaedic Surgery; ATTEND Orthopaedic Surgery
PROC: 0R9P0ZZ Drainage of Left Wrist Joint, Open Approach (ICD-10-PCS; 2019-11-22)
PROC: 0LT60ZZ Resection of Left Lower Arm and Wrist Tendon, Open Approach (ICD-10-PCS; principal; 2019-11-22 13:30)
PROC: 02HV33Z Insertion of Infusion Device into Superior Vena Cava, Percutaneous Approach (ICD-10-PCS; 2019-11-23)
PROC: B518ZZA Fluoroscopy of Superior Vena Cava, Guidance (ICD-10-PCS; 2019-11-23)
PROC: B548ZZA Ultrasonography of Superior Vena Cava, Guidance (ICD-10-PCS; 2019-11-23)
DX: T84.69XA Infection and inflammatory reaction due to internal fixation device of other site, initial encounter (principal); L03.114 Cellulitis of left upper limb; S63.03 Subluxation and dislocation of midcarpal joint; M65.9 Synovitis and tenosynovitis, unspecified; B95.7 Other staphylococcus as the cause of diseases classified elsewhere; I10 Essential (primary) hypertension; M79.89 Other specified soft tissue disorders; M25.532 Pain in left wrist; F41.8 Other specified anxiety disorders; F17.210 Nicotine dependence, cigarettes, uncomplicated; Y83.8 Other surgical procedures as the cause of abnormal reaction of the patient, or of later complication, without mention of misadventure at the time of the procedure; Z03.818 Encounter for observation for suspected exposure to other biological agents ruled out
CPT/HCPCS: 1830; 36415; 36573; 80048; 85025; 87070; 87075; 87077; 87186; 87205; 87635; 99140; C9803; J0360; J0690; J0696; J1642; J2250; J2270; J2704; J3010; J3490

== ENCOUNTER 2019-12-01 13:00 | Emergency (ER) | payer MEDICAID ==
--- NOTE | 2019-12-01 13:20 | ER Document Report ---
ED Medical Screen (RME) - General Chief Complaint: Other Stated Complaint: PICC LINE DISPLACED Time Seen by Provider: 12/01/19 13:08 Primary Care Provider: JAMIE LOGAN DO [Primary Care Provider] - Follow up as needed Mode of Arrival: Ambulatory Information source: Patient Notes: HPI; 39-year-old male presents to the emergency room stating that when home health came out to change the dressing to his PICC line in his right upper arm that she noticed it was starting to come out. Has a PICC line for antibiotics next 5 weeks. States he is only had his first week. Has no other complaints. PE: Alert oriented x3. Dressing dry and intact to PICC line in the right upper arm. Lungs: Clear to auscultation without rales, rhonchi, wheezes. Heart: Regular rate rhythm without murmurs, rubs, gallops. Positive right radial pulse. Unable to fully assess PICC line in triage. I have greeted and performed a rapid initial assessment of this patient. A comprehensive ED assessment and evaluation of the patient, analysis of test results and completion of the medical decision making process will be conducted by additional ED providers. I have specifically instructed the patient or family members with the patient to immediately return to any nursing staff should anything change in the patient's condition or with their chief complaint. TRAVEL OUTSIDE OF THE [place] IN LAST 30 DAYS: No - Related Data Allergies/Adverse Reactions: fluoxetine [From Prozac] Allergy (Verified 08/26/19 14:08) naproxen Allergy (Verified 08/26/19 14:08) Past Medical History - Social History Frequency of alcohol use: Occasional - Past Medical History Cardiac Medical History: Reports: Hx Hypertension Denies: Hx Atrial Fibrillation, Hx Congestive Heart Failure, Hx Coronary Artery Disease, Hx Heart Attack Pulmonary Medical History: Denies: Hx Asthma, Hx Bronchitis, Hx COPD, Hx Pneumonia Neurological Medical History: Denies: Hx Seizures Endocrine Medical History: Denies: Hx Diabetes Mellitus Type 1, Hx Diabetes Mellitus Type 2 Renal/ Medical History: Denies: Hx Peritoneal Dialysis Musculoskeltal Medical History: Denies Hx Arthritis Psychiatric Medical History: Reports: Hx Depression, Hx Schizophrenia Past Surgical History: Reports: Hx Orthopedic Surgery - Immunizations Immunizations up to date: Yes Hx Diphtheria, Pertussis, Tetanus Vaccination: Yes Physical Exam - Vital signs Vitals: Temp Pulse Resp BP Pulse Ox 99.5 F 80 18 174/109 H 97 12/01/19 13:05 12/01/19 13:05 12/01/19 13:05 12/01/19 13:05 12/01/19 13:05 Course - Vital Signs Vital signs: Temp Pulse Resp BP Pulse Ox 99.5 F 80 18 174/109 H 97 12/01/19 13:05 12/01/19 13:05 12/01/19 13:05 12/01/19 13:05 12/01/19 13:05 Doctor's Discharge - Discharge Referrals: JAMIE LOGAN DO [Primary Care Provider] - Follow up as needed
--- NOTE | 2019-12-01 14:53 | RADIOLOGY REPORT (SQ) ---
EXAM DESCRIPTION: CHEST SINGLE VIEW IMAGES COMPLETED DATE/TIME: 12/01/2019 2:27 pm REASON FOR STUDY: picc line placement COMPARISON: 11/23/2019 and 08/26/2019 EXAM PARAMETERS: NUMBER OF VIEWS: One view. TECHNIQUE: Single frontal radiographic view of the chest acquired. RADIATION DOSE: NA LIMITATIONS: None. FINDINGS: LUNGS AND PLEURA: No opacities, masses or pneumothorax. No pleural effusion. MEDIASTINUM AND HILAR STRUCTURES: No masses. Contour normal. HEART AND VASCULAR STRUCTURES: Heart normal in size. Normal vasculature. BONES: No acute findings. HARDWARE: Interval removal or retraction of a right upper extremity PICC demonstrated on 11/23/2019 eileen ging. OTHER: No other significant finding. IMPRESSION: Interval removal/ retraction of a right upper extremity PICC. No acute cardiopulmonary abnormality. TECHNICAL DOCUMENTATION: JOB ID: [id number] 2010 [employer]- All Rights Reserved Reading location - IP/workstation name: [email or web address]
--- NOTE | 2019-12-01 15:27 | RADIOLOGY REPORT (SQ) ---
EXAM DESCRIPTION: PICC LINE REPLACEMENT IMAGES COMPLETED DATE/TIME: 12/01/2019 3:11 pm REASON FOR STUDY: pain PICC line coming out COMPARISON: None. FLUOROSCOPY TIME: 14 seconds of fluoroscopy was used. 1 images saved to PACS. TECHNIQUE: Fluoroscopic guided PICC replacement. LIMITATIONS: None. PROCEDURE: After written consent and assessment were obtained, the patient was brought into the fluo roscopy room and place supine on the table. The right arm with an existing PICC was prepped and sasha ped in a sterile fashion. The entry site was anesthetized with 1% lidocaine. A .018 guide wire was t hen inserted through the existing PICC and into the venous system. The old catheter was then removed and a new catheter measuring 38 cm was advanced over the wire and into the venous system. The wire w as then removed and the catheter was adhered to the patients arm with a stat lock. The catheter was t hen aspirated and flushed and a sterile bandage was placed over the access site. A fluoroscopic spot image was saved to PACS confirming the catheter tip within the superior vena cava. IMPRESSION: SUCCESSFUL OVER THE WIRE REPLACEMENT OF AN OLD PICC FOR A NEW ONE THAT IS 5 FR DUAL LUME N 38 CM PICC IN THE RIGHT ARM. COMMENT: Patient medication list reviewed: Yes- Quality ID# 130:Eligible professional attests to doc umenting in the medical record they obtained, updated, or reviewed the patient's current medications. . Quality ID 145: Final reports for procedures using fluoroscopy that document radiation exposure amina emily, or exposure time and number of fluorographic images (if radiation exposure indices are not avail able) Quality ID #76: The patient was prepped and draped using maximum sterile barrier technique including cap, mask, sterile gown, sterile gloves, a large sterile sheet, hand hygiene, and 2% Chlorhexidine fo r cutaneous antisepsis. When ultrasound is used, sterile ultrasound techniques are followed requiring sterile gel and sterile probes. TECHNICAL DOCUMENTATION: JOB ID: [id number] 2010 [employer]- All Rights Reserved Reading location - IP/workstation name: [email or web address]
--- NOTE | 2019-12-01 15:31 | ER Document Report ---
HPI - HPI Patient complains to provider of: PICC line replacement Time Seen by Provider: 12/01/19 13:08 Onset: Other - This is a 59-year-old male presented to the emergency room today stating that he had a nonfunctioning PICC line that he needed replacement for Pain Level: Denies Associated Symptoms: None Similar symptoms previously: No - CONSTITUTIONAL Constitutional: DENIES: Fever, Chills Past Medical History - General Information source: Patient - Social History Smoking Status: Current Every Day Smoker Smoking Education Provided: Yes Frequency of alcohol use: Occasional Family History: DM, Hypertension - Past Medical History Cardiac Medical History: Reports: Hx Hypertension Denies: Hx Atrial Fibrillation, Hx Congestive Heart Failure, Hx Coronary Artery Disease, Hx Heart Attack Pulmonary Medical History: Denies: Hx Asthma, Hx Bronchitis, Hx COPD, Hx Pneumonia Neurological Medical History: Denies: Hx Seizures Endocrine Medical History: Denies: Hx Diabetes Mellitus Type 1, Hx Diabetes Mellitus Type 2 Renal/ Medical History: Denies: Hx Peritoneal Dialysis Musculoskeletal Medical History: Denies Hx Arthritis Psychiatric Medical History: Reports: Hx Depression, Hx Schizophrenia Past Surgical History: Reports: Hx Orthopedic Surgery - Immunizations Immunizations up to date: Yes Hx Diphtheria, Pertussis, Tetanus Vaccination: Yes Vertical Provider Document - CONSTITUTIONAL Agree With Documented VS: Yes - INFECTION CONTROL TRAVEL OUTSIDE OF THE [place] IN LAST 30 DAYS: No - HEENT HEENT: Atraumatic, Conjuctival Injection, Normocephalic, PERRLA - NECK Neck: Normal Inspection - RESPIRATORY Respiratory: Breath Sounds Normal, No Respiratory Distress - CARDIOVASCULAR Cardiovascular: Regular Rate, Regular Rhythm - GI/ABDOMEN Gastrointestinal: Abdomen Soft - BACK Back: Normal Inspection - MUSCULOSKELETAL/EXTREMETIES Musculoskeletal/Extremeties: MAEW Course - Re-evaluation Re-evalutation: 12/01/19 15:29 Radiology confirmed successful replacement over wire of PICC line insertion. - Vital Signs Vital signs: Temp Pulse Resp BP Pulse Ox 99.5 F 80 18 174/109 H 97 12/01/19 13:05 12/01/19 13:05 12/01/19 13:05 12/01/19 13:05 12/01/19 13:05 - Diagnostic Test Radiology results interpreted by me: 12/01/19 15:29 Chest X-Ray 12/01/19 14:14 IMPRESSION: Interval removal/ retraction of a right upper extremity PICC. No acute cardiopulmonary abnormality. PICC Line Exchange 12/01/19 14:36 IMPRESSION: SUCCESSFUL OVER THE WIRE REPLACEMENT OF AN OLD PICC FOR A NEW ONE THAT IS 5 FR DUAL LUMEN 38 CM PICC IN THE RIGHT ARM. Discharge - Discharge Clinical Impression: S/P PICC central line placement Disposition: HOME, SELF-CARE Additional Instructions: Medication as prescribed. Follow-up PMD in 2 to 3 days. Return to emergency room for any change worsening condition. Referrals: JAMIE LOGAN DO [ACTIVE STAFF] - Follow up as needed
[2019-12-01 15:45] VITALS: BP 159/114
== END 2019-12-01 15:45 | disposition home or self-care (01) ==
LOC: ER 13:00
DX: Z45.2 Encounter for adjustment and management of vascular access device (principal); F17.200 Nicotine dependence, unspecified, uncomplicated; I10 Essential (primary) hypertension
CPT/HCPCS: 99283; 71045; 36584; C1769; J1642